=== PATIENT | female | born 1960 | race Caucasian/White ===

== ENCOUNTER → 2016-12-24 | Outpatient (CLI) | payer MEDICAID ==
--- NOTE | 2016-12-24 12:54 | REP ---
MRI BRAIN WITHOUT WITH CONTRAST (IAC PROTOCOL): 12/24/2016. Clinical history: Bilateral tinnitus. Comparison CT brain 11/13/2007. Technique: Whole brain T2 FLAIR and thin section T1 and gradient echo sequences through the IACs along with diffusion-weighted and ADC mapping sequences. After infusion of 16.2 ml as of ProHance, axial T1 whole brain with T1 fat suppressed coronal and axial thin-section images provided. Ventricles are midline, symmetric and without dilatation or displacement. Third and fourth ventricles unremarkable. There are numerous subcortical, deep central and periventricular white matter hyperintense T2 and FLAIR foci. Some of these are confluent with the largest in the left frontal region up to 16 mm in size. Basal ganglia also shows some hyperintense foci. None of these are visible on the T1 images as cystic lesions. Cortical stripe is preserved without evidence of atrophy. The brainstem shows hyperintense focus in the right cerebral peduncle on the T2 images. The wyatt was intact. The cerebellum showed no signal abnormality. Basal cisterns are intact. No intracranial hemorrhage or evidence of infarct. The diffusion weighted images and ADC mapping sequences show no restricted water diffusion or acute ischemia. Thin-section images show the VII/VIII cranial nerve complexes symmetric with normal signal on both sides. On gadolinium images there is no abnormal enhancement of the cranial nerves within the IACs or cerebellopontine angles. No abnormal enhancement in the brain stem, cerebellum or cerebral cortex. None of the white matter lesions show enhancement. The optic chiasm and pituitary were unremarkable. The infundibulum is midline. Corpus callosum showed some white matter hyperintense foci. Impression: 1. There is no MR evidence of mass in the IAC. The VII/VIII cranial nerve complexes were symmetric and normal in signal with no enhancement. CP angles intact. 2. Only a solitary hyperintense focus on T2 FLAIR seen in the right cerebral peduncle. The brainstem unremarkable and the cerebellum intact. There are extensive periventricular deep central and subcortical white matter hyperintense T2 FLAIR foci in both hemispheres. These may reflect small vessel ischemic changes of demyelination or other process. Please correlate clinically. No other findings. Signed by Lloyd Rowe MD 12/24/2016 04:45 P
== END ==
LOC: M RAD 09:53
PROVIDERS: ATTEND Physician Assistant Medical
DX: R90.89 Other abnormal findings on diagnostic imaging of central nervous system (principal)

== ENCOUNTER → 2017-01-06 | Outpatient (REF) | payer MEDICAID ==
[2017-01-06 19:24] LABS: BASO % 0.6 % (0.0-1.0); EOS # 0.6 K/mm3 (0.0-0.50); EOS % 8.1 % (0.0-3.0); LARGE UNSTAINED CELL # 0.1 K/mm3 (0.0-0.4); LARGE UNSTAINED CELL % 1.5 % (0.0-4.0); LYMPH # 2.2 K/mm3 (1.5-4.5); LYMPH % 28.9 % (24.0-44.0); MEAN CORPUSCULAR HEMOGLOBIN 32.7 pg (27.0-33.0); MEAN CORPUSCULAR HGB CONC 33.3 g/dl (32.0-36.5); MEAN CORPUSCULAR VOLUME 98.1 fl (80.0-96.0); MONO # 0.4 K/mm3 (0.0-0.8); MONO % 5.4 % (0.0-5.0); NEUTROPHILS # 4.2 K/mm3 (1.8-7.7); NEUTROPHILS % 55.4 % (36.0-66.0); PLATELET COUNT, AUTOMATED 233 k/mm3 (150-450); RED CELL DISTRIBUTION WIDTH 12.3 % (11.5-14.5); WHITE BLOOD COUNT 7.6 K/mm3 (4.0-10.0)
[2017-01-06 20:29] LABS: ERYTHROCYTE SEDIMENTATION RATE 4 mm/hr (0-30)
== END ==
LOC: M SFHCPLAZ 17:32
PROVIDERS: ATTEND Physician Assistant Medical
DX: J32.9 Chronic sinusitis, unspecified (principal)

== ENCOUNTER → 2017-01-07 | Outpatient (CLI) | payer MEDICAID ==
--- NOTE | 2017-01-07 11:59 | REP ---
MAXILLOFACIAL CT WITHOUT CONTRAST: HISTORY: Chronic sinusitis. The sinuses are clear. The ostiomeatal units are patent. The middle and inferior nasal turbinates are partially paradoxical. There is leti bullosa of the right middle nasal turbinate. There is mild deviation of the nasal septum to the left. A spur is present arising from the left side of the nasal septum. The spur abuts the left inferior nasal turbinate. The cribriform plate, medial horner of the orbits and optic canals are intact. The carotid canals form a segment of the posterolateral horner of the sphenoid sinus. The sphenoid sinus septum inserts into the right internal carotid canal wall. IMPRESSION: There is no acute or chronic sinusitis. Signed by Wilson Lopez MD 01/07/2017 01:49 P
== END ==
LOC: M RAD 10:23
PROVIDERS: ATTEND Physician Assistant Medical
DX: J32.9 Chronic sinusitis, unspecified (principal)

== ENCOUNTER → 2017-01-11 | Outpatient (CLI) | payer MEDICAID ==
[2017-01-11 14:40] LABS: ALBUMIN 4.1 GM/DL (3.2-5.2); ALBUMIN/GLOBULIN RATIO 1.28 (1.00-1.93); ALKALINE PHOSPHATASE 98 U/L (45-117); ALT/SGPT 33 U/L (12-78); ANION GAP 6 MEQ/L (8-16); AST/SGOT 19 U/L (15-37); BILIRUBIN,TOTAL 0.3 MG/DL (0.2-1.0); BLOOD UREA NITROGEN 23 MG/DL (7-18); CALCIUM LEVEL 9.3 MG/DL (8.5-10.1); CARBON DIOXIDE LEVEL 27 MEQ/L (21-32); CHLORIDE LEVEL 112 MEQ/L (98-107); CREATININE FOR GFR 0.87 MG/DL (0.55-1.02); GLOMERULAR FILTRATION RATE > 60.0 (>51); GLUCOSE, FASTING 98 MG/DL (70-105); SODIUM LEVEL 145 MEQ/L (136-145); TOTAL PROTEIN 7.3 GM/DL (6.4-8.2)
[2017-01-11 14:44] LABS: POTASSIUM SERUM 5.2 MEQ/L (3.5-5.1)
[2017-01-11 14:47] LABS: VITAMIN B12 LEVEL 597 PG/ML
[2017-01-11 14:48] LABS: FOLATE > 24.0 NG/ML
[2017-01-17 08:49] LABS: BABESIOSIS LEVEL IGG <1:10 (Neg:<1:10); BABESIOSIS LEVEL IGM <1:10 (Neg:<1:10); BARTONELLA DNA PCR Negative (Negative); Lyme Disease IgG/IgM Antibodie <0.91 ISR (0.00-0.90); Lyme Disease IgM Ab Quantitati <0.80 index (0.00-0.79)
== END ==
LOC: M LAB 12:21
PROVIDERS: ATTEND Psychiatry & Neurology Psychiatry
DX: Z79.899 Other long term (current) drug therapy (principal)

== ENCOUNTER → 2017-02-01 | Outpatient (REF) | payer MEDICAID ==
[2017-02-01 13:10] LABS: FOLATE 18.7 NG/ML; VITAMIN B12 LEVEL 392 PG/ML
[2017-02-01 14:09] LABS: CHOLESTEROL LEVEL 245 MG/DL (<200); TOTAL PROTEIN 6.8 GM/DL (6.4-8.2); TRIGLYCERIDES LEVEL 137 MG/DL (<150)
[2017-02-03 12:00] LABS: ALBUMIN 4.35 GM/DL (3.29-5.55); GAMMA GLOBULIN % 11.8 % (11.1-18.8)
== END ==
LOC: M LABNEURO 11:50
PROVIDERS: ATTEND Psychiatry & Neurology Neurology
DX: E78.00 Pure hypercholesterolemia, unspecified (principal); G60.9 Hereditary and idiopathic neuropathy, unspecified; G45.9 Transient cerebral ischemic attack, unspecified

== ENCOUNTER → 2017-02-23 | Outpatient (REF) | payer MEDICAID ==
[2017-02-23 13:22] LABS: FREE T4 0.81 NG/DL (0.76-1.46)
== END ==
LOC: M SFHCPLAZ 10:47
PROVIDERS: ATTEND Physician Assistant Medical
DX: E66.9 Obesity, unspecified (principal); E78.5 Hyperlipidemia, unspecified; E55.9 Vitamin D deficiency, unspecified

== ENCOUNTER → 2017-04-21 | Outpatient (CLI) | payer MEDICAID ==
--- NOTE | 2017-04-21 15:29 | REPMRS ---
Patient History The patient states she has not had a clinical breast exam in over a year. Patient is postmenopausal. Family history of colorectal cancer in father at age 50 or over. Digital Woman Screen Mammo: April 21, 2017 - Exam #: [id number] Bilateral CC and MLO view(s) were taken. Technologist: Deanne King, Technologist Prior study comparison: July 15, 2015, digital woman screen mammo performed at [facility] to [facility]. October 23, 2013, digital woman screen mammo performed at [facility] to [facility]. FINDINGS: There are scattered fibroglandular densities. There has been no change in the appearance of the mammogram from the prior studies. There is a mild amount of residual fibroglandular tissue which is fairly symmetric. There is no interval development of dominant mass, architectural distortion, or clustered microcalcification suggestive of malignancy. ASSESSMENT: BI-RADS/ACR category 1 mammogram. Negative. Recommendation Routine screening mammogram in 1 year (for women over age 40). This mammogram was interpreted with the aid of an FDA-approved computer-aided dectection system. Electronically Signed By: Roney Flores MD 04/21/17 [id number]
== END ==
LOC: M WHC 14:48
PROVIDERS: ATTEND Physician Assistant Medical
DX: Z12.31 Encounter for screening mammogram for malignant neoplasm of breast (principal)

== ENCOUNTER → 2017-05-11 | Outpatient (CLI) | payer OTHER | LOC: M RAD 13:40 | PROVIDERS: ATTEND Physician Assistant Medical | DX: M25.562 Pain in left knee (principal); M17.12 Unilateral primary osteoarthritis, left knee ==

== ENCOUNTER → 2017-05-11 | Outpatient (REF) | payer OTHER ==
[2017-05-11 16:44] LABS: FREE T4 0.99 NG/DL (0.76-1.46)
== END ==
LOC: M SFHCPLAZ 14:45
PROVIDERS: ATTEND Physician Assistant Medical
DX: E66.9 Obesity, unspecified (principal); E78.00 Pure hypercholesterolemia, unspecified; E55.9 Vitamin D deficiency, unspecified

== ENCOUNTER → 2017-08-23 | Outpatient (REF) | payer OTHER ==
[2017-08-23 19:55] LABS: ANION GAP 7 MEQ/L (8-16); BLOOD UREA NITROGEN 19 MG/DL (7-18); CALCIUM LEVEL 9.7 MG/DL (8.5-10.1); CARBON DIOXIDE LEVEL 27 MEQ/L (21-32); CHLORIDE LEVEL 110 MEQ/L (98-107); CREATININE FOR GFR 0.77 MG/DL (0.55-1.02); GLOMERULAR FILTRATION RATE > 60.0 (>51); GLUCOSE, FASTING 80 MG/DL (70-105); MAGNESIUM LEVEL 2.4 MG/DL (1.8-2.4); POTASSIUM SERUM 4.2 MEQ/L (3.5-5.1); SODIUM LEVEL 144 MEQ/L (136-145)
== END ==
LOC: M SFHCPLAZ 16:08
PROVIDERS: ATTEND Physician Assistant Medical
DX: N18.2 Chronic kidney disease, stage 2 (mild) (principal)

== ENCOUNTER → 2018-03-21 | Outpatient (REF) | payer OTHER ==
[2018-03-21 12:42] LABS: BASO # 0.1 10^3/uL (0.0-0.2); BASO % 0.9 % (0.0-1.0); EOS # 0.3 10^3/uL (0.0-0.50); EOS % 4.7 % (0.0-3.0); HEMATOCRIT 46.4 % (36.0-47.0); HEMOGLOBIN 15.4 g/dl (12.0-15.5); IMMATURE GRANULOCYTE % 0.5 % (0-3.0); LYMPH # 1.5 10^3/uL (1.5-4.5); LYMPH % 23.3 % (24.0-44.0); MEAN CORPUSCULAR HEMOGLOBIN 32.2 pg (27.0-33.0); MEAN CORPUSCULAR HGB CONC 33.2 g/dl (32.0-36.5); MEAN CORPUSCULAR VOLUME 97.1 fl (80.0-96.0); MONO # 0.6 10^3/uL (0.0-0.8); MONO % 8.7 % (0.0-5.0); NEUTROPHILS # 3.9 10^3/uL (1.8-7.7); NEUTROPHILS % 61.9 % (36.0-66.0); PLATELET COUNT, AUTOMATED 280 10^3/uL (150-450); RED BLOOD COUNT 4.78 10^6/uL (4.00-5.40); WHITE BLOOD COUNT 6.3 10^3/uL (4.0-10.0)
[2018-03-21 12:43] LABS: HEMATOCRIT 46.4 % (36.0-47.0)
[2018-03-21 12:53] LABS: TOTAL 25(OH) VITAMIN D 46.3 NG/ML (30.0-100.0)
[2018-03-21 12:54] LABS: FOLATE 21.5 NG/ML (>5.4); PTH INTACT 64.1 PG/ML (18.5-88.0); VITAMIN B12 LEVEL 397 PG/ML (247-911)
[2018-03-21 13:03] LABS: ALBUMIN 4.4 GM/DL (3.2-5.2); ALBUMIN/GLOBULIN RATIO 1.33 (1.00-1.93); ALKALINE PHOSPHATASE 99 U/L (45-117); ALT/SGPT 32 U/L (12-78); ANION GAP 7 MEQ/L (8-16); AST/SGOT 18 U/L (7-37); BILIRUBIN,TOTAL 0.5 MG/DL (0.2-1.0); BLOOD UREA NITROGEN 14 MG/DL (7-18); CALCIUM LEVEL 9.3 MG/DL (8.5-10.1); CARBON DIOXIDE LEVEL 25 MEQ/L (21-32); CHLORIDE LEVEL 110 MEQ/L (98-107); CHOLESTEROL LEVEL 226 MG/DL (<200); CHOLESTEROL RISK RATIO 3.766 (<5); CPK CREATINE PHOSPHOKINASE 120 U/L (26-192); CREATININE FOR GFR 0.87 MG/DL (0.55-1.30); FERRITIN 101 NG/ML (8-252); FREE T4 0.95 NG/DL (0.76-1.46); GLOMERULAR FILTRATION RATE > 60.0 (>51); GLUCOSE, FASTING 107 MG/DL (70-100); HDL CHOLESTEROL 60 MG/DL (>40); IRON (FE) 124 UG/DL (50-170); LDL CHOLESTEROL 127.8 MG/DL (<100); MAGNESIUM LEVEL 2.3 MG/DL (1.8-2.4); NON-HDL-C 166 MG/DL; POTASSIUM SERUM 4.4 MEQ/L (3.5-5.1); SODIUM LEVEL 142 MEQ/L (136-145); TOTAL IRON BINDING CAPACITY 310 UG/DL (250-450); TOTAL PROTEIN 7.7 GM/DL (6.4-8.2); TRIGLYCERIDES LEVEL 191 MG/DL (<150)
[2018-03-21 13:08] LABS: ESTIMATED AVERAGE GLUCOSE 117 MG/DL (60-110); HEMOGLOBIN A1c 5.7 %
[2018-03-21 14:35] LABS: PRETREATED FOLATE FOR RBCFOL 14.1 NG/ML; RBC FOLATE 638.1 NG/ML (280-791)
[2018-03-23 10:52] LABS: ALPHA-1-GLOBULIN % 4.3 % (2.9-4.9); ALPHA-2-GLOBULINS % 10.3 % (7.1-11.8); BETA-1-GLOBULINS % 5.6 % (4.7-7.2)
[2018-03-23 10:53] LABS: ALBUMIN 4.85 GM/DL (3.29-5.55); ALPHA-1-GLOBULINS 0.33 GM/DL (0.17-0.41); ALPHA-2-GLOBULINS 0.79 GM/DL (0.42-0.99); BETA-1-GLOBULINS 0.43 GM/DL (0.28-0.60); BETA-2-GLOBULINS 0.35 GM/DL (0.19-0.55); BETA-2-GLOBULINS % 4.5 % (3.2-6.5); GAMMA GLOBULIN % 12.3 % (11.1-18.8); GAMMA GLOBULINS 0.95 GM/DL (0.65-1.58)
== END ==
LOC: M SFHCPLAZ 09:34
DX: E78.5 Hyperlipidemia, unspecified (principal); N18.2 Chronic kidney disease, stage 2 (mild); I10 Essential (primary) hypertension; E55.9 Vitamin D deficiency, unspecified; E66.9 Obesity, unspecified
CPT/HCPCS: 82550

== ENCOUNTER → 2018-05-02 | Outpatient (CLI) | payer OTHER | LOC: M PAIN 08:45 | DX: G89.29 Other chronic pain (principal); M54.5 Low back pain; M54.2 Cervicalgia; M25.562 Pain in left knee; I10 Essential (primary) hypertension; E66.9 Obesity, unspecified; R73.01 Impaired fasting glucose; F31.9 Bipolar disorder, unspecified; K21.9 Gastro-esophageal reflux disease without esophagitis; E55.9 Vitamin D deficiency, unspecified; M17.0 Bilateral primary osteoarthritis of knee; K58.2 Mixed irritable bowel syndrome; I65.21 Occlusion and stenosis of right carotid artery; L20.9 Atopic dermatitis, unspecified; Z79.891 Long term (current) use of opiate analgesic; Z79.899 Other long term (current) drug therapy; Z88.8 Allergy status to other drugs, medicaments and biological substances; Z91.048 Other nonmedicinal substance allergy status | CPT/HCPCS: G0463 ==

== ENCOUNTER → 2018-05-31 | Outpatient (REF) | payer OTHER ==
[2018-05-31 18:39] LABS: BASO % 0.6 % (0.0-1.0); EOS # 0.3 10^3/uL (0.0-0.50); EOS % 3.9 % (0.0-3.0); HEMATOCRIT 44.5 % (36.0-47.0); HEMOGLOBIN 14.7 g/dl (12.0-15.5); IMMATURE GRANULOCYTE % 0.3 % (0-3.0); LYMPH % 29.3 % (24.0-44.0); MEAN CORPUSCULAR VOLUME 96.9 fl (80.0-96.0); MONO # 0.5 10^3/uL (0.0-0.8); MONO % 7.8 % (0.0-5.0); NEUTROPHILS % 58.1 % (36.0-66.0); PLATELET COUNT, AUTOMATED 261 10^3/uL (150-450); RED BLOOD COUNT 4.59 10^6/uL (4.00-5.40); RED CELL DISTRIBUTION WIDTH 12.1 % (11.5-14.5); WHITE BLOOD COUNT 6.9 10^3/uL (4.0-10.0)
[2018-05-31 18:40] LABS: C REACTIVE PROTEIN QUANTITATIV < 0.30 MG/DL (0.00-0.30)
[2018-05-31 18:40] LABS: RHEUMATOID FACTOR QUANT < 10.0 IU/ML (<15.0)
[2018-05-31 19:28] LABS: ERYTHROCYTE SEDIMENTATION RATE 2 mm/hr (0-30)
[2018-06-03 00:14] LABS: ANTINUCLEAR ANTIBODIES DIRECT Negative (Negative); Lyme Disease IgG/IgM Antibodie <0.91 ISR (0.00-0.90); Lyme Disease IgM Ab Quantitati <0.80 index (0.00-0.79)
== END ==
LOC: M LABDRAW1 17:27
DX: M17.12 Unilateral primary osteoarthritis, left knee (principal)

== ENCOUNTER → 2018-06-20 | Outpatient (CLI) | payer OTHER | LOC: M PAIN 09:45 | DX: M53.3 Sacrococcygeal disorders, not elsewhere classified (principal); M54.5 Low back pain; G89.29 Other chronic pain; I10 Essential (primary) hypertension; R73.01 Impaired fasting glucose; F31.9 Bipolar disorder, unspecified; K21.9 Gastro-esophageal reflux disease without esophagitis; M17.11 Unilateral primary osteoarthritis, right knee; Z79.891 Long term (current) use of opiate analgesic; Z79.899 Other long term (current) drug therapy; Z88.8 Allergy status to other drugs, medicaments and biological substances; Z91.09 Other allergy status, other than to drugs and biological substances; Z87.891 Personal history of nicotine dependence | CPT/HCPCS: G0463 ==

== ENCOUNTER → 2018-07-05 | Outpatient (CLI) | payer OTHER ==
[~2018-07-05] MED LIST: BUPIVACAINE HCL 0.25% 30 ML VIAL As Ordered; ISOVUE-M 300 61% 15ML VIAL (Q9967) As Ordered; LIDOCAINE 1% SDV INJ 30 ML VIAL As Ordered; TRIAMCINOLONE ACETONIDE SUSP 40 MG/ML VIAL (J3301) As Ordered; diazePAM 5 MG TAB As Ordered
== END ==
LOC: M PAIN 11:30
DX: G89.29 Other chronic pain (principal); M46.1 Sacroiliitis, not elsewhere classified; M53.88 Other specified dorsopathies, sacral and sacrococcygeal region; I10 Essential (primary) hypertension; F31.9 Bipolar disorder, unspecified; K21.9 Gastro-esophageal reflux disease without esophagitis; M17.0 Bilateral primary osteoarthritis of knee; Z79.899 Other long term (current) drug therapy; Z88.8 Allergy status to other drugs, medicaments and biological substances; Z91.09 Other allergy status, other than to drugs and biological substances; Z87.891 Personal history of nicotine dependence
CPT/HCPCS: J3301

== ENCOUNTER → 2018-08-02 | Outpatient (CLI) | payer OTHER | LOC: M PAIN 11:45 | DX: M53.3 Sacrococcygeal disorders, not elsewhere classified (principal); M54.5 Low back pain; I10 Essential (primary) hypertension; R73.01 Impaired fasting glucose; F31.9 Bipolar disorder, unspecified; K21.9 Gastro-esophageal reflux disease without esophagitis; Z79.899 Other long term (current) drug therapy; Z88.8 Allergy status to other drugs, medicaments and biological substances; Z91.09 Other allergy status, other than to drugs and biological substances; Z87.891 Personal history of nicotine dependence | CPT/HCPCS: G0463 ==

== ENCOUNTER → 2018-10-02 | Outpatient (CLI) | payer OTHER | LOC: M PAIN 10:15 | DX: M53.3 Sacrococcygeal disorders, not elsewhere classified (principal); M54.5 Low back pain; I10 Essential (primary) hypertension; E66.9 Obesity, unspecified; M51.36 Other intervertebral disc degeneration, lumbar region; L20.9 Atopic dermatitis, unspecified; R73.01 Impaired fasting glucose; F31.9 Bipolar disorder, unspecified; K21.9 Gastro-esophageal reflux disease without esophagitis; E55.9 Vitamin D deficiency, unspecified; M17.0 Bilateral primary osteoarthritis of knee; K58.2 Mixed irritable bowel syndrome; I65.21 Occlusion and stenosis of right carotid artery; Z88.8 Allergy status to other drugs, medicaments and biological substances; Z91.048 Other nonmedicinal substance allergy status; Z68.31 Body mass index [BMI] 31.0-31.9, adult; Z79.891 Long term (current) use of opiate analgesic; Z87.891 Personal history of nicotine dependence; Z79.899 Other long term (current) drug therapy | CPT/HCPCS: G0463 ==

== ENCOUNTER → 2018-10-10 | Outpatient (CLI) | payer OTHER | LOC: M RAD 11:31 | DX: G45.9 Transient cerebral ischemic attack, unspecified (principal) | CPT/HCPCS: 70450 ==

== ENCOUNTER → 2018-10-25 | Outpatient (CLI) | payer OTHER ==
[~2018-10-25] MED LIST changes: -BUPIVACAINE HCL 0.25% 30 ML VIAL As Ordered; -ISOVUE-M 300 61% 15ML VIAL (Q9967) As Ordered; -LIDOCAINE 1% SDV INJ 30 ML VIAL As Ordered; +PROHANCE 279.3MG/ML 15ML VIAL (A9576) As Ordered; +PROHANCE 279.3MG/ML 5ML VIAL (A9576) As Ordered; -TRIAMCINOLONE ACETONIDE SUSP 40 MG/ML VIAL (J3301) As Ordered; -diazePAM 5 MG TAB As Ordered
== END ==
LOC: M RAD 14:56
DX: G45.9 Transient cerebral ischemic attack, unspecified (principal)
CPT/HCPCS: A9576

== ENCOUNTER → 2018-11-01 | Outpatient (CLI) | payer OTHER ==
[~2018-11-01] MED LIST changes: +AMLO5TAB4; +AUGM875T28 PO; +BUPIVACAINE HCL 0.25% 30 ML VIAL As Ordered ONE; +CARV12.5; +DIVA1TAB48; +FLON1SPR; +ISOVUE-M 300 61% 15ML VIAL (Q9967) As Ordered ONE; +LIDOCAINE 1% SDV INJ 30 ML VIAL As Ordered ONE; +LORA-243; +MAPA500T17; +NAPR1TAB41; +PERM5CRE9; -PROHANCE 279.3MG/ML 15ML VIAL (A9576) As Ordered; -PROHANCE 279.3MG/ML 5ML VIAL (A9576) As Ordered; +SIME1CAP; +SIMV20TA2; +TOPI100T9; +TRAM50TA2; +TRIAMCINOLONE ACETONIDE SUSP 40 MG/ML VIAL (J3301) As Ordered ONE; +VIST50CA PO; +VITA50005; +diazePAM 5 MG TAB As Ordered ONE; +oxyCODONE 5MG TAB As Ordered ONE
--- NOTE | 2018-11-01 15:40 | REP ---
SI joint series: Bilateral study. Two views. History: Bilateral SI joint injection for pain. 30 seconds of fluoroscopy time is reported. Findings: A sequence of two last image hold fluoroscopically obtained spot radiographs of the SI joints document needle position and contrast injection associated with SI joint injection procedure. Electronically Signed by David Hills MD 11/01/2018 05:02 P
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
== END ==
LOC: M PAIN 10:15
PROVIDERS: ATTEND Anesthesiology
DX: M46.1 Sacroiliitis, not elsewhere classified (principal); I10 Essential (primary) hypertension; L20.9 Atopic dermatitis, unspecified; M51.36 Other intervertebral disc degeneration, lumbar region; E66.9 Obesity, unspecified; R73.01 Impaired fasting glucose; Z68.31 Body mass index [BMI] 31.0-31.9, adult; F31.9 Bipolar disorder, unspecified; K21.9 Gastro-esophageal reflux disease without esophagitis; E55.9 Vitamin D deficiency, unspecified; K58.2 Mixed irritable bowel syndrome; Z87.891 Personal history of nicotine dependence; Z79.82 Long term (current) use of aspirin; Z79.899 Other long term (current) drug therapy; Z88.8 Allergy status to other drugs, medicaments and biological substances; Z91.048 Other nonmedicinal substance allergy status
CPT/HCPCS: 27096; J3301; Q9967

== ENCOUNTER → 2018-11-08 | Outpatient (REF) | payer OTHER ==
[~2018-11-08] MED LIST changes: -BUPIVACAINE HCL 0.25% 30 ML VIAL As Ordered ONE; -ISOVUE-M 300 61% 15ML VIAL (Q9967) As Ordered ONE; -LIDOCAINE 1% SDV INJ 30 ML VIAL As Ordered ONE; -TRIAMCINOLONE ACETONIDE SUSP 40 MG/ML VIAL (J3301) As Ordered ONE; -diazePAM 5 MG TAB As Ordered ONE; -oxyCODONE 5MG TAB As Ordered ONE
[2018-11-08 12:13] LABS: BASO # 0.1 10^3/uL (0.0-0.2); BASO % 0.5 % (0.0-1.0); EOS # 0.3 10^3/uL (0.0-0.50); EOS % 2.6 % (0.0-3.0); HEMATOCRIT 44.8 % (36.0-47.0); HEMOGLOBIN 14.7 g/dl (12.0-15.5); LYMPH % 19.5 % (24.0-44.0); MEAN CORPUSCULAR HEMOGLOBIN 32.5 pg (27.0-33.0); MEAN CORPUSCULAR HGB CONC 32.8 g/dl (32.0-36.5); MEAN CORPUSCULAR VOLUME 98.9 fl (80.0-96.0); MONO # 0.8 10^3/uL (0.0-0.8); MONO % 7.9 % (0.0-5.0); NEUTROPHILS # 6.9 10^3/uL (1.8-7.7); NEUTROPHILS % 68.8 % (36.0-66.0); PLATELET COUNT, AUTOMATED 257 10^3/uL (150-450); RED BLOOD COUNT 4.53 10^6/uL (4.00-5.40)
[2018-11-08 13:18] LABS: ALBUMIN 3.8 GM/DL (3.2-5.2); ALT/SGPT 33 U/L (12-78); BILIRUBIN,TOTAL 0.4 MG/DL (0.2-1.0); BLOOD UREA NITROGEN 19 MG/DL (7-18); CALCIUM LEVEL 9.1 MG/DL (8.5-10.1); CARBON DIOXIDE LEVEL 27 MEQ/L (21-32); CHLORIDE LEVEL 108 MEQ/L (98-107); CREATININE FOR GFR 0.97 MG/DL (0.55-1.30); GLOMERULAR FILTRATION RATE > 60.0 (>51); GLUCOSE, FASTING 102 MG/DL (70-100); POTASSIUM SERUM 4.5 MEQ/L (3.5-5.1); SODIUM LEVEL 141 MEQ/L (136-145); TOTAL PROTEIN 6.5 GM/DL (6.4-8.2)
[2018-11-08 13:57] LABS: HEMOGLOBIN A1c 5.7 %
== END ==
LOC: M SFHCPLAZ 10:03
PROVIDERS: ATTEND Physician Assistant Medical
DX: I10 Essential (primary) hypertension (principal); E78.5 Hyperlipidemia, unspecified; E66.9 Obesity, unspecified

== ENCOUNTER → 2018-11-17 | Outpatient (CLI) | payer OTHER ==
[~2018-11-17] MED LIST changes: -AMLO5TAB4; +AMLO5TAB6; -MAPA500T17; +MAPA500T2
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
== END ==
LOC: M PAIN 10:15
PROVIDERS: ATTEND Nurse Practitioner Family
DX: M53.3 Sacrococcygeal disorders, not elsewhere classified (principal); M54.5 Low back pain; I10 Essential (primary) hypertension; K21.9 Gastro-esophageal reflux disease without esophagitis; R73.01 Impaired fasting glucose; F31.0 Bipolar disorder, current episode hypomanic; L20.9 Atopic dermatitis, unspecified; M17.0 Bilateral primary osteoarthritis of knee; Z79.82 Long term (current) use of aspirin; Z79.899 Other long term (current) drug therapy; Z88.8 Allergy status to other drugs, medicaments and biological substances; Z91.09 Other allergy status, other than to drugs and biological substances; Z86.19 Personal history of other infectious and parasitic diseases; Z87.891 Personal history of nicotine dependence

== ENCOUNTER → 2019-01-26 | Outpatient (CLI) | payer OTHER ==
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
== END ==
LOC: M PAIN 13:45
PROVIDERS: ATTEND Nurse Practitioner Family
DX: M53.3 Sacrococcygeal disorders, not elsewhere classified (principal); M54.5 Low back pain; G89.29 Other chronic pain; I10 Essential (primary) hypertension; R73.01 Impaired fasting glucose; F31.9 Bipolar disorder, unspecified; K21.9 Gastro-esophageal reflux disease without esophagitis; M17.0 Bilateral primary osteoarthritis of knee; Z79.82 Long term (current) use of aspirin; Z79.899 Other long term (current) drug therapy; Z88.8 Allergy status to other drugs, medicaments and biological substances; Z91.09 Other allergy status, other than to drugs and biological substances; Z87.891 Personal history of nicotine dependence

== ENCOUNTER → 2019-02-27 | Outpatient (CLI) | payer OTHER ==
[~2019-02-27] MED LIST changes: +BUPIVACAINE HCL 0.25% 30 ML VIAL As Ordered ONE; +ISOVUE-M 300 61% 15ML VIAL (Q9967) As Ordered ONE; +LIDOCAINE 1% SDV INJ 30 ML VIAL As Ordered ONE; +TRIAMCINOLONE ACETONIDE SUSP 40 MG/ML VIAL (J3301) As Ordered ONE; +diazePAM 5 MG TAB As Ordered ONE
--- NOTE | 2019-02-27 16:34 | REP ---
Bilateral SI joint series: Limited study three views: History: Injection procedure for pain. 14 seconds of fluoroscopy time is reported. Findings: A sequence of three last image hold fluoroscopically obtained spot radiographs of the SI joints bilaterally document needle position associated with injection procedure. Electronically Signed by David Hills MD 02/27/2019 08:35 P
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
== END ==
LOC: M PAIN 11:00
PROVIDERS: ATTEND Anesthesiology
DX: G89.29 Other chronic pain (principal); M46.1 Sacroiliitis, not elsewhere classified; M53.88 Other specified dorsopathies, sacral and sacrococcygeal region; I10 Essential (primary) hypertension; R73.01 Impaired fasting glucose; F31.9 Bipolar disorder, unspecified; Z79.82 Long term (current) use of aspirin; Z79.899 Other long term (current) drug therapy; Z88.8 Allergy status to other drugs, medicaments and biological substances; Z91.09 Other allergy status, other than to drugs and biological substances; Z86.19 Personal history of other infectious and parasitic diseases; Z87.891 Personal history of nicotine dependence
CPT/HCPCS: 27096; J3301; Q9967

== ENCOUNTER → 2019-03-16 | Outpatient (CLI) | payer OTHER ==
[~2019-03-16] MED LIST changes: -BUPIVACAINE HCL 0.25% 30 ML VIAL As Ordered ONE; -ISOVUE-M 300 61% 15ML VIAL (Q9967) As Ordered ONE; -LIDOCAINE 1% SDV INJ 30 ML VIAL As Ordered ONE; -TRIAMCINOLONE ACETONIDE SUSP 40 MG/ML VIAL (J3301) As Ordered ONE; -diazePAM 5 MG TAB As Ordered ONE
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
== END ==
LOC: M PAIN 10:15
PROVIDERS: ATTEND Nurse Practitioner Family
DX: M79.10 Myalgia, unspecified site (principal); I10 Essential (primary) hypertension; R73.01 Impaired fasting glucose; Z86.59 Personal history of other mental and behavioral disorders; K21.9 Gastro-esophageal reflux disease without esophagitis; E55.9 Vitamin D deficiency, unspecified; Z87.891 Personal history of nicotine dependence; Z88.8 Allergy status to other drugs, medicaments and biological substances; Z91.09 Other allergy status, other than to drugs and biological substances; Z79.82 Long term (current) use of aspirin; Z79.899 Other long term (current) drug therapy

== ENCOUNTER → 2019-04-03 | Outpatient (REF) | payer OTHER | LOC: M SFHCPLAZ 14:50 | PROVIDERS: ATTEND Physician Assistant Medical | DX: R05 Cough (principal) ==

== ENCOUNTER → 2019-04-10 | Outpatient (CLI) | payer OTHER ==
[~2019-04-10] MED LIST changes: +BUPIVACAINE HCL 0.25% 10 ML VIAL As Ordered ONE; +BUPIVACAINE HCL 0.25% 30 ML VIAL As Ordered ONE; +IBUP-1022 PO; +TRIAMCINOLONE ACETONIDE SUSP 40 MG/ML VIAL (J3301) As Ordered ONE; +diazePAM 5 MG TAB As Ordered ONE
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
== END ==
LOC: M PAIN 11:00
PROVIDERS: ATTEND Anesthesiology
DX: M79.18 Myalgia, other site (principal); M54.5 Low back pain; I10 Essential (primary) hypertension; R73.01 Impaired fasting glucose; K21.9 Gastro-esophageal reflux disease without esophagitis; M17.0 Bilateral primary osteoarthritis of knee; Z79.82 Long term (current) use of aspirin; Z79.899 Other long term (current) drug therapy; Z88.8 Allergy status to other drugs, medicaments and biological substances; Z91.09 Other allergy status, other than to drugs and biological substances; Z87.891 Personal history of nicotine dependence; Z86.59 Personal history of other mental and behavioral disorders
CPT/HCPCS: 20552; J3301

== ENCOUNTER 2019-04-18 14:37 | Emergency (ER) | payer OTHER ==
[~2019-04-18] VITALS: Ht 170.2 cm; Wt 90.0 kg
[~2019-04-18 14:37] MED LIST changes: -BUPIVACAINE HCL 0.25% 10 ML VIAL As Ordered ONE; -BUPIVACAINE HCL 0.25% 30 ML VIAL As Ordered ONE; -IBUP-1022 PO; -TRIAMCINOLONE ACETONIDE SUSP 40 MG/ML VIAL (J3301) As Ordered ONE; -diazePAM 5 MG TAB As Ordered ONE
[2019-04-18 15:47] LABS: BASO # 0.1 10^3/uL (0.0-0.2); BASO % 0.6 % (0.0-1.0); EOS # 0.3 10^3/uL (0.0-0.50); EOS % 2.9 % (0.0-3.0); HEMATOCRIT 42.9 % (36.0-47.0); HEMOGLOBIN 14.3 g/dl (12.0-15.5); LYMPH % 22.6 % (24.0-44.0); MEAN CORPUSCULAR HEMOGLOBIN 32.1 pg (27.0-33.0); MEAN CORPUSCULAR HGB CONC 33.3 g/dl (32.0-36.5); MEAN CORPUSCULAR VOLUME 96.4 fl (80.0-96.0); MONO # 0.8 10^3/uL (0.0-0.8); MONO % 8.5 % (0.0-5.0); NEUTROPHILS # 5.9 10^3/uL (1.8-7.7); NEUTROPHILS % 64.7 % (36.0-66.0); PLATELET COUNT, AUTOMATED 238 10^3/uL (150-450); RED BLOOD COUNT 4.45 10^6/uL (4.00-5.40)
[2019-04-18 15:51] LABS: BLOOD UREA NITROGEN 21 MG/DL (7-18); CALCIUM LEVEL 8.4 MG/DL (8.5-10.1); CARBON DIOXIDE LEVEL 24 MEQ/L (21-32); CHLORIDE LEVEL 113 MEQ/L (98-107); CPK CREATINE PHOSPHOKINASE 111 U/L (26-192); CREATININE FOR GFR 0.89 MG/DL (0.55-1.30); GLOMERULAR FILTRATION RATE > 60.0 (>51); GLUCOSE, FASTING 102 MG/DL (70-100); MB/CK RELATIVE INDEX 2.07 (< OR =4); SODIUM LEVEL 145 MEQ/L (136-145); TROPONIN I < 0.02 NG/ML (< 0.10)
--- NOTE | 2019-04-18 15:55 | REP ---
Clinical: Acute chest pain. Comparison: 12/26/2014 Findings: Mediastinum and cardiac silhouette are normal. Scattered chronic-appearing interstitial changes are appreciated. Subtle left basilar atelectasis cannot be excluded and should be correlated with physical examination and auscultation. Impression: Cannot exclude trace left basilar atelectasis. Electronically Signed by Dada Whitten MD 04/18/2019 03:46 P
--- NOTE | 2019-04-18 16:55 | REP ---
CT Head without contrast HISTORY: Confusion COMPARISON: CT 10/10/2018 and MR 10/25/2018 Areas of decreased attenuation are present in the periventricular and subcortical white matter. These are unchanged compared to the previous study. There is no intraparenchymal hemorrhage, acute infarct, mass or midline shift. The ventricular system is normal in appearance. There is no extra cerebral collection. There is no fracture. The visualized sinuses are clear. IMPRESSION: There areas of decreased attenuation in the periventricular and subcortical white matter unchanged compared to the previous study. This may represent demyelinating disease. Electronically Signed by Wilson Lopez MD 04/18/2019 04:46 P
--- NOTE | 2019-04-18 16:59 | REP ---
CT cervical spine without contrast HISTORY: Confusion COMPARISON: 11/13/2007 There is no acute fracture or subluxation. A disc bulge is present at the C3-4 level. Disc bulges with associated osteophyte formation are present at the C4-5 through C6-7 levels. There is minimal narrowing of the spinal canal. Uncinate process and/or facet hypertrophy are present at the C3-4 through C7-T1 levels. These findings produce minimal to moderate narrowing of the neural foramina. The C3-4 through C7-T1 intervertebral discs are decreased in height consistent with disc degeneration. IMPRESSION: 1. There is no acute fracture or subluxation. 2. There is cervical spondylosis at the C3-4 through C7-T1 levels . Findings at the C3-4, C6-7 and C7-T1 levels are new. Electronically Signed by Wilson Lopez MD 04/18/2019 04:51 P
[2019-04-18] MEDS ORDERED: IBUP-1022 PO (17:34)
[2019-04-18 17:54] VITALS: BP 128/77
--- NOTE | 2019-04-18 18:25 | ED PDOC ---
Post-Departure Follow-Up sheridan brink faxed formal report of ct c spine for fu Vicente Merrill MD April 18, 2019 18:25
--- NOTE | 2019-04-18 19:59 | ECGEPIP ---
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
== END 2019-04-18 18:03 | disposition home or self-care (01) ==
LOC: M ED 14:37
DX: M47.812 Spondylosis without myelopathy or radiculopathy, cervical region (principal); R07.89 Other chest pain; I10 Essential (primary) hypertension; E78.5 Hyperlipidemia, unspecified; Z79.899 Other long term (current) drug therapy; Z88.8 Allergy status to other drugs, medicaments and biological substances

== ENCOUNTER → 2019-05-18 | Outpatient (CLI) | payer OTHER ==
[~2019-05-18] MED LIST changes: +IBUP-1022 PO
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
== END ==
LOC: M PAIN 10:15
PROVIDERS: ATTEND Nurse Practitioner Family
DX: M79.18 Myalgia, other site (principal); I10 Essential (primary) hypertension; M51.36 Other intervertebral disc degeneration, lumbar region; E66.9 Obesity, unspecified; R73.01 Impaired fasting glucose; L20.9 Atopic dermatitis, unspecified; F31.9 Bipolar disorder, unspecified; K21.9 Gastro-esophageal reflux disease without esophagitis; E55.9 Vitamin D deficiency, unspecified; M17.0 Bilateral primary osteoarthritis of knee; K58.2 Mixed irritable bowel syndrome; I65.21 Occlusion and stenosis of right carotid artery; M51.26 Other intervertebral disc displacement, lumbar region; Z87.891 Personal history of nicotine dependence; Z79.82 Long term (current) use of aspirin; Z79.891 Long term (current) use of opiate analgesic; Z79.899 Other long term (current) drug therapy; Z88.8 Allergy status to other drugs, medicaments and biological substances; Z91.048 Other nonmedicinal substance allergy status

== ENCOUNTER → 2019-08-02 | Outpatient (CLI) | payer OTHER ==
[~2019-08-02] MED LIST changes: +BUPIVACAINE HCL 0.25% 30 ML VIAL As Ordered ONE; +ISOVUE-M 300 61% 15ML VIAL (Q9967) As Ordered ONE; +LIDOCAINE 1% SDV INJ 30 ML VIAL As Ordered ONE; +ONDANSETRON 4MG/2ML VIAL (J2405) As Ordered ONE; -SIMV20TA2; +SIMV20TA22
--- NOTE | 2019-08-02 16:22 | REP ---
Partial lumbar spine series: Four views . History: Injection procedure for pain. 32 seconds of fluoroscopy time is reported. Findings: A sequence of four fluoroscopically obtained last image hold procedural spot radiographs of the lumbar spine document needle position and contrast injection associated with injection procedure. Electronically Signed by David Hills MD 08/02/2019 04:14 P
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
== END ==
LOC: M PAIN 13:45
PROVIDERS: ATTEND Anesthesiology
DX: M47.816 Spondylosis without myelopathy or radiculopathy, lumbar region (principal); M47.817 Spondylosis without myelopathy or radiculopathy, lumbosacral region; I10 Essential (primary) hypertension; M51.26 Other intervertebral disc displacement, lumbar region; E66.9 Obesity, unspecified; R73.01 Impaired fasting glucose; F31.9 Bipolar disorder, unspecified; L20.9 Atopic dermatitis, unspecified; K21.9 Gastro-esophageal reflux disease without esophagitis; E55.9 Vitamin D deficiency, unspecified; M17.0 Bilateral primary osteoarthritis of knee; K58.2 Mixed irritable bowel syndrome; I65.21 Occlusion and stenosis of right carotid artery; Z68.30 Body mass index [BMI] 30.0-30.9, adult; Z87.891 Personal history of nicotine dependence; Z90.49 Acquired absence of other specified parts of digestive tract; Z88.8 Allergy status to other drugs, medicaments and biological substances; Z91.048 Other nonmedicinal substance allergy status; Z79.82 Long term (current) use of aspirin; Z79.891 Long term (current) use of opiate analgesic; Z79.899 Other long term (current) drug therapy; Z79.52 Long term (current) use of systemic steroids
CPT/HCPCS: 64493; 64494; J2405; Q9967

== ENCOUNTER → 2019-08-16 | Outpatient (REF) | payer OTHER ==
[~2019-08-16] MED LIST changes: -BUPIVACAINE HCL 0.25% 30 ML VIAL As Ordered ONE; -ISOVUE-M 300 61% 15ML VIAL (Q9967) As Ordered ONE; -LIDOCAINE 1% SDV INJ 30 ML VIAL As Ordered ONE; -ONDANSETRON 4MG/2ML VIAL (J2405) As Ordered ONE; +SIMV20TA2; -SIMV20TA22
== END ==
LOC: M LAB REF 12:44
PROVIDERS: ATTEND Podiatrist
DX: L03.032 Cellulitis of left toe (principal); M79.672 Pain in left foot

== ENCOUNTER → 2019-08-21 | Outpatient (CLI) | payer OTHER | LOC: M PAIN 11:15 | PROVIDERS: ATTEND Nurse Practitioner Family | DX: M43.07 Spondylolysis, lumbosacral region (principal); Z79.82 Long term (current) use of aspirin; Z79.891 Long term (current) use of opiate analgesic; Z79.899 Other long term (current) drug therapy; Z88.8 Allergy status to other drugs, medicaments and biological substances; Z91.048 Other nonmedicinal substance allergy status ==

== ENCOUNTER → 2019-10-10 | Outpatient (CLI) | payer OTHER ==
[~2019-10-10] MED LIST changes: +BUPIVACAINE HCL 0.25% 30 ML VIAL As Ordered ONE; +ISOVUE-M 300 61% 15ML VIAL (Q9967) As Ordered ONE; +LIDOCAINE 1% SDV INJ 30 ML VIAL As Ordered ONE; -SIMV20TA2; +SIMV20TA22
--- NOTE | 2019-10-10 15:32 | REP ---
Partial lumbar spine series: Two views . History: Injection procedure for pain. 24 seconds of fluoroscopy time is reported. Findings: A sequence of two fluoroscopically obtained last image hold procedural spot radiographs of the lumbar spine document needle position and contrast injection associated with injection procedure. Electronically Signed by David Hills MD 10/10/2019 03:22 P
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
== END ==
LOC: M PAIN 11:15
PROVIDERS: ATTEND Anesthesiology
DX: M47.816 Spondylosis without myelopathy or radiculopathy, lumbar region (principal); M47.817 Spondylosis without myelopathy or radiculopathy, lumbosacral region; I10 Essential (primary) hypertension; R73.01 Impaired fasting glucose; Z86.59 Personal history of other mental and behavioral disorders; K21.9 Gastro-esophageal reflux disease without esophagitis; E55.9 Vitamin D deficiency, unspecified; Z86.19 Personal history of other infectious and parasitic diseases; Z87.891 Personal history of nicotine dependence; Z88.8 Allergy status to other drugs, medicaments and biological substances; Z91.09 Other allergy status, other than to drugs and biological substances; Z79.82 Long term (current) use of aspirin; Z79.899 Other long term (current) drug therapy
CPT/HCPCS: 64493; 64494; Q9967

== ENCOUNTER → 2019-10-24 | Outpatient (CLI) | payer OTHER ==
[~2019-10-24] MED LIST changes: -BUPIVACAINE HCL 0.25% 30 ML VIAL As Ordered ONE; -ISOVUE-M 300 61% 15ML VIAL (Q9967) As Ordered ONE; -LIDOCAINE 1% SDV INJ 30 ML VIAL As Ordered ONE
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
== END ==
LOC: M PAIN 10:00
PROVIDERS: ATTEND Nurse Practitioner Family
DX: M47.816 Spondylosis without myelopathy or radiculopathy, lumbar region (principal); M47.817 Spondylosis without myelopathy or radiculopathy, lumbosacral region; I10 Essential (primary) hypertension; R73.01 Impaired fasting glucose; Z86.59 Personal history of other mental and behavioral disorders; K21.9 Gastro-esophageal reflux disease without esophagitis; E55.9 Vitamin D deficiency, unspecified; Z87.891 Personal history of nicotine dependence; Z88.8 Allergy status to other drugs, medicaments and biological substances; Z91.09 Other allergy status, other than to drugs and biological substances; Z79.82 Long term (current) use of aspirin; Z79.899 Other long term (current) drug therapy

== ENCOUNTER → 2019-12-11 | Outpatient (CLI) | payer OTHER ==
[~2019-12-11] MED LIST changes: +BUPIVACAINE HCL 0.25% 30 ML VIAL As Ordered ONE; +LIDOCAINE 1% SDV INJ 30 ML VIAL As Ordered ONE; +TRIAMCINOLONE ACETONIDE SUSP 40 MG/ML VIAL (J3301) As Ordered ONE
--- NOTE | 2019-12-11 16:24 | REP ---
Partial lumbar spine series: Three views . History: Injection procedure for pain. 1 minute 48 seconds of fluoroscopy time is reported. Findings: A sequence of three fluoroscopically obtained last image hold procedural spot radiographs of the lumbar spine document needle position and contrast injection associated with injection procedure. Electronically Signed by David Hills MD 12/11/2019 04:16 P
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
== END ==
LOC: M PAIN 13:00
PROVIDERS: ATTEND Anesthesiology
DX: M47.816 Spondylosis without myelopathy or radiculopathy, lumbar region (principal); M47.817 Spondylosis without myelopathy or radiculopathy, lumbosacral region; I10 Essential (primary) hypertension; R73.01 Impaired fasting glucose; Z86.59 Personal history of other mental and behavioral disorders; K21.9 Gastro-esophageal reflux disease without esophagitis; E55.9 Vitamin D deficiency, unspecified; Z87.891 Personal history of nicotine dependence; Z88.8 Allergy status to other drugs, medicaments and biological substances; Z91.09 Other allergy status, other than to drugs and biological substances; Z79.82 Long term (current) use of aspirin; Z79.899 Other long term (current) drug therapy
CPT/HCPCS: 64635; 64636; J3301

== ENCOUNTER 2020-02-22 09:29 | Inpatient (IN) | payer MEDICAID, OTHER ==
[~2020-02-22] VITALS: Ht 170.2 cm; Wt 86.4 kg
[~2020-02-22 09:29] MED LIST changes: -AMLO5TAB6; +AMLO5TAB6 PO; -BUPIVACAINE HCL 0.25% 30 ML VIAL As Ordered ONE; -CARV12.5; +CARV12.5 PO; -LIDOCAINE 1% SDV INJ 30 ML VIAL As Ordered ONE; -MAPA500T2; +MAPA500T2 PO; -NAPR1TAB41; +NAPR1TAB41 PO; -SIME1CAP; +SIME1CAP PO; -TOPI100T9; +TOPI100T9 PO; -TRAM50TA2; +TRAM50TA2 PO; -TRIAMCINOLONE ACETONIDE SUSP 40 MG/ML VIAL (J3301) As Ordered ONE
[2020-02-22] MEDS ORDERED: TIZA4TAB4 PO (10:41)
[2020-02-22 10:42] LABS: HEMATOCRIT 43.3 % (36.0-47.0); HEMOGLOBIN 14.2 g/dl (12.0-15.5); MEAN CORPUSCULAR HEMOGLOBIN 33.1 pg (27.0-33.0); MEAN CORPUSCULAR HGB CONC 32.8 g/dl (32.0-36.5); MEAN CORPUSCULAR VOLUME 100.9 fl (80.0-96.0); PLATELET COUNT, AUTOMATED 243 10^3/uL (150-450); RED BLOOD COUNT 4.29 10^6/uL (4.00-5.40); WHITE BLOOD COUNT 14.5 10^3/uL (4.0-10.0)
[2020-02-22 11:17] LABS: ACETAMINOPHEN LEVEL < 2.0 UG/ML (10.0-30.0); ALBUMIN 4.3 GM/DL (3.2-5.2); ALT/SGPT 75 U/L (12-78); AMPHETAMINES LEVEL URINE NEGATIVE (NEGATIVE); BARBITURATES URINE NEGATIVE (NEGATIVE); BENZODIAZEPINES URINE NEGATIVE (NEGATIVE); BILIRUBIN,DIRECT 0.3 MG/DL (0.0-0.2); BLOOD UREA NITROGEN 28 MG/DL (7-18); CALCIUM LEVEL 8.8 MG/DL (8.5-10.1); CANNABINOIDS URINE POSITIVE (NEGATIVE); CARBON DIOXIDE LEVEL 25 MEQ/L (21-32); CHLORIDE LEVEL 110 MEQ/L (98-107); COCAINE METABOLITE URINE NEGATIVE (NEGATIVE); CREATININE FOR GFR 1.29 MG/DL (0.55-1.30); ETHYL ALCOHOL (ETHANOL) < 0.003 % (0.000-0.010); GLOMERULAR FILTRATION RATE 45.3 (>51); GLUCOSE, FASTING 93 MG/DL (70-100); METHADONE URINE NEGATIVE (NEGATIVE); OPIATES URINE NEGATIVE (NEGATIVE); PHENCYCLIDINE URINE NEGATIVE (NEGATIVE); POTASSIUM SERUM 3.4 MEQ/L (3.5-5.1); SALICYLATE LEVEL < 1.7 MG/DL (5.0-30.0); SODIUM LEVEL 140 MEQ/L (136-145)
[2020-02-22] MEDS ORDERED: OLANZapine ORAL DISINTEGRATING TAB 5MG PO PRN (14:00)
[2020-02-22] MEDS ORDERED: MAALOX 30 ML SUSP *UDC PO PRN (14:00)
[2020-02-22] MEDS ORDERED: traZODone 50 MG TAB PO PRN (14:00)
[2020-02-22] MEDS ORDERED: MOM 30ML SUSPENSION UDC PO PRN (14:00)
[2020-02-22] MEDS ORDERED: OMEP-221 PO (14:29)
[2020-02-22] MEDS ORDERED: DULO1CAP4 PO (14:29)
[2020-02-22] MEDS ORDERED: HYDR-3363 PO (14:29)
[2020-02-22] MEDS ORDERED: IBUP200T45 PO (14:29)
[2020-02-22] MEDS ORDERED: VITA50005 PO (14:29)
[2020-02-22] MEDS ORDERED: TOPI50TA9 PO (14:29)
[2020-02-22] MEDS ORDERED: ZOCO80TA PO (14:29)
[2020-02-22] MEDS ORDERED: CALCTAB89 PO (14:30)
[2020-02-22] MEDS ORDERED: MAGN400T2 PO (14:30)
[2020-02-22] MEDS ORDERED: DICY10CA13 PO (14:34)
[2020-02-22 16:06] VITALS: BP 156/88
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
[2020-02-22] MEDS ORDERED: DICYCLOMINE 10 MG CAP PO PRN (17:15)
[2020-02-22] MEDS ORDERED: TOPIRAMATE (TopAMAX) 25 MG TAB PO ONE (19:30)
[2020-02-22] MEDS: ACETAMINOPHEN TAB 650MG DOSE (2X325MG) PO PRN (20:09)
[2020-02-22] MEDS: OLANZapine ORAL DISINTEGRATING TAB 5MG PO SCH (20:09)
[2020-02-22] MEDS: SIMVASTATIN 40 MG TAB PO SCH (20:09)
[2020-02-22] MEDS: CARVedilol 12.5 MG TAB PO SCH (20:10)
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
[2020-02-23 06:16] VITALS: BP 138/91
[2020-02-23] MEDS: MAGNESIUM OXIDE 400 MG TAB (MAG-OX) PO SCH (08:44)
[2020-02-23] MEDS: CARVedilol 12.5 MG TAB PO SCH ×2 (08:44→20:19)
[2020-02-23] MEDS: TOPIRAMATE (TopAMAX) 25 MG TAB PO SCH ×2 (08:44→20:18)
[2020-02-23] MEDS: amLODIPine 5 MG TAB PO SCH (08:45)
[2020-02-23] MEDS ORDERED: OLANZapine ORAL DISINTEGRATING TAB 5MG PO ONE (09:00)
[2020-02-23] MEDS ORDERED: FLUBLOK(EGG FREE)(QUAD)INFLUENZA VACC 0.5ML SYRINGE (90682)18YRS&OLDER IM ONE (09:00)
[2020-02-23] MEDS: ACETAMINOPHEN TAB 650MG DOSE (2X325MG) PO PRN (15:04)
[2020-02-23 16:16] VITALS: BP 115/71
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
[2020-02-23] MEDS: SIMVASTATIN 40 MG TAB PO SCH (20:18)
[2020-02-23] MEDS: OLANZapine ORAL DISINTEGRATING TAB 5MG PO SCH (20:19)
[2020-02-24 06:18] VITALS: BP 108/76
[2020-02-24] MEDS: MAGIC MOUTHWASH SUSPENSION BTL SS PRN ×3 (06:33→21:15)
[2020-02-24] MEDS: TOPIRAMATE (TopAMAX) 25 MG TAB PO SCH (08:37)
[2020-02-24] MEDS: CARVedilol 12.5 MG TAB PO SCH ×2 (08:37→20:12)
[2020-02-24] MEDS: amLODIPine 5 MG TAB PO SCH (08:38)
[2020-02-24] MEDS: MAGNESIUM OXIDE 400 MG TAB (MAG-OX) PO SCH (08:38)
[2020-02-24] MEDS: ACETAMINOPHEN TAB 650MG DOSE (2X325MG) PO PRN (10:12)
[2020-02-24] MEDS: IBUPROFEN 600 MG TAB PO PRN ×2 (13:09→20:13)
[2020-02-24 16:15] VITALS: BP 132/76
[2020-02-24] MEDS: OLANZapine ORAL DISINTEGRATING TAB 5MG PO SCH (20:13)
[2020-02-24] MEDS: SIMVASTATIN 40 MG TAB PO SCH (20:13)
[2020-02-24] MEDS ORDERED: TOPIRAMATE (TopAMAX) 100 MG TAB PO SCH (21:00)
--- NOTE | 2020-02-24 21:43 | MHIPN ---
DATE: 02/24/2020 VITAL SIGNS: Blood pressure 132/76, pulse 72, temperature 97.7. CHIEF COMPLAINT: Feels better. SUBJECTIVE: She is seen for followup in the presence of staff. She says that she has been feeling a bit better, feels ready to go home, says slept quite well. Appetite is okay. Says she received a message that she is not sure who it was from and when she replied it turned out to be her boyfriend, Jac. She says that she spoke only for a short while. She has been in touch with other people, including from the [employer], and is making plans to return to her own place. Says is planning to move but that may be held back because of the Coronavirus crisis. Says does not feel as distraught. MENTAL STATUS EXAMINATION: She is neat. She is cooperative. Appears more relaxed, though mildly anxious. There is no agitation. No psychomotor retardation. She is coherent. Denies any suicidal thoughts or intents. No homicidal ideas or intents. No overt delusions elicited, though it is possible that this might just be under the surface. Cognition is grossly intact. Judgment and insight remain questionable. ASSESSMENT: 1. Major depressive disorder, recurrent, possibly with psychotic features. 2. Bipolar disorder, current episode manic with psychosis. She is clinically improved. She is less anxious and less depressed overall. PLAN: Continue current care and current medication regimen as well. I would suggest obtaining collateral information to help ascertain what has been going on recently, as some of the ideas and statements that she has had may be verging on being not entirely real. She will see the psychiatrist tomorrow and further recommendations will be made, including planning for discharge shortly. We met for 15 minutes.
[2020-02-25 06:02] VITALS: BP 144/90
[2020-02-25 08:35] VITALS: BP 159/88
[2020-02-25] MEDS: CARVedilol 12.5 MG TAB PO SCH (08:35)
[2020-02-25] MEDS: TOPIRAMATE (TopAMAX) 25 MG TAB PO SCH (08:36)
[2020-02-25] MEDS: MAGNESIUM OXIDE 400 MG TAB (MAG-OX) PO SCH (08:37)
[2020-02-25] MEDS: IBUPROFEN 600 MG TAB PO PRN (08:37)
[2020-02-25] MEDS: amLODIPine 5 MG TAB PO SCH (08:37)
[2020-02-25] MEDS: MAGIC MOUTHWASH SUSPENSION BTL SS PRN (08:39)
[2020-02-25] MEDS ORDERED: OLAN5ZYD PO (11:33)
--- NOTE | 2020-02-25 11:34 | MHDSPDOC ---
[facility] Discharge Summary Discharge Summary DATE OF ADMISSION: Feb 22, 2020 at 13:48 DATE OF DISCHARGE: 02/25/20 Discharge Shi Velasquez MRN: N/A Date of : N/A Date of Service: 02/25/2020 Diagnoses Major depressive disorder, moderate to severe, recurrent, in full remission History of Present Illness The patient is a 59-year-old woman with a history of reported depression presents with increasing depressive symptoms and severe hopelessness. Reported some significant depressive mood based symptoms including potentially some psychotic symptoms upon her presentation. Consultants Involved Hospitalist/PCP screening Treatment and Progress On The Unit The patient was admitted to the inpatient mental health unit and started on Zyprexa 5 mg twice a day. She had not been resumed on her home duloxetine, but had responded well to the Zyprexa titrating it to only 5 mg nightly for her mood related psychosis symptoms that resolved without much issue. She did well on the unit, had no behavior problems, consistently denied any suicidal or homicidal ideation and had no behavioral problems attending groups when needed and made improvements quite quickly over the weekend. She then reports that she was ready to go home and had requested discharge. She reports that she wanted to continue on her Cymbalta when she left. Discharge Assessment A 59-year-old woman with a history of depression. Presents with mood related delusions. Treated with a low dose of an antipsychotic as she had been previous ly on an SNRI. Responds well without any complications. The patient at the time of discharge did not meet criteria for involuntary admission/extension due to having a normal mental status exam, fair insight into the situation, They are engaged in the discharge process, as well as being friendly and amenable in behavioral control and havent been engaging in any observed concerning behavior or ideation recently. They decline voluntary extension/admission at this time and must be discharged in good roger, as Im unable to make a case for holding the patient against their will. They may have historical risk factors of admissions and other interactions with psychiatry however, those are not modifiable from a clinical perspective. The patient will need to be discharged in good roger. Mental Status Examination General: Well dressed with good hygiene Speech: Spontaneous and fluid Thought processes: Linear and logical MSK: Smooth and coordinated gait, no signs of tremors or involuntary orofacial movements Thought content: Future orientated Abstract reasoning, and computation: Intact Description of associations: Intact Description of abnormal or psychotic thoughts: Denies any suicidal or homicidal ideation. Denies any auditory or visual hallucinations. Does not appear to be responding to internal stimuli. Does not appear to be endorsing any bizarre or paranoid ideation. Judgment: fair Insight: fair Orientation: Alert and orientated 3 Cognition: Grossly normal Recent and remote memory: Intact Attention span and concentration: Intact Fund of knowledge: Adequate Mood: "okay" Affect: Euthymic with a full range Follow Up The social work team worked during the predischarge meeting in order to evaluate for further issues of lethality address them fully before discharge. They worked on safety planning with the patient's family members in order to ensure that the patient will have a safe and effective discharge. Time Spent The amount of time spent in the coordination of care for this patient was approximately 45 minutes. Tuesday Vital Signs/I&Os Vital Signs Date Time Temp Pulse Resp B/P (MAP) Pulse Ox O2 Delivery O2 Flow Rate FiO2 02/25/20 08:35 82 159/88 02/25/20 06:02 98.3 18 97 Room Air Medications Scheduled Amlodipine Besylate (Amlodipine Besylate) 5 Mg Tab, 5 MG PO DAILY, (Reported) Calcium Carbonate (Calcium) 600 Mg Tablet, 600 MG PO DAILY, (Reported) Carvedilol (Carvedilol) 12.5 Mg Tab, 12.5 MG PO BID, (Reported) Duloxetine Hcl (Duloxetine HCl) 20 Mg Capsule.dr, 20 MG PO DAILY, (Reported) Magnesium Oxide (Magnesium Oxide) 400 Mg Tablet, 400 MG PO DAILY, (Reported) Olanzapine (Olanzapine) 5 Mg Tablet, 1 TAB PO QPM for mood for 7 Days, #7 Omeprazole (Omeprazole) 40 Mg Capsule.dr, 40 MG PO DAILY, (Reported) Simethicone (Simethicone) 125 Mg Cap, 125 MG PO DAILY, (Reported) Simvastatin (Zocor) 80 Mg Tablet, 80 MG PO QPM, (Reported) Topiramate (Topiramate) 100 Mg Tab, 100 MG PO QHS, (Reported) Topiramate (Topiramate) 50 Mg Tablet, 50 MG PO QAM, (Reported) Scheduled PRN Acetaminophen (Mapap) 500 Mg Tab, 500 MG PO Q6H PRN for PAIN, (Reported) Dicyclomine HCl (Dicyclomine HCl) 10 Mg Capsule, 10 MG PO TID PRN for SPASMS, (Reported) Ibuprofen (Ibu-200) 200 Mg Tablet, 600 MG PO TID PRN for PAIN, (Reported) Naproxen Sodium (Naproxen Sodium) 220 Mg Tab, 220 MG PO Q12H PRN for PAIN, (Reported) Tizanidine HCl (Tizanidine HCl) 4 Mg Tablet, 4 MG PO TID PRN for MUSCLE SPASMS, (Reported) Tramadol HCl (Tramadol HCl) 50 Mg Tab, 50 MG PO TID PRN for PAIN, (Reported) Allergies Coded Allergies: lamotrigine (Verified Allergy, Unknown, numbness, 04/18/19) KONG OTERO DO Feb 25, 2020 11:34
[2020-02-25] MEDS ORDERED: OLAN5TAB PO (13:42)
== END 2020-02-25 14:45 | disposition home or self-care (01) | DRG 751 ==
LOC: M ED 09:29 → M ED INP 13:48 → M PSY 14:20
PROVIDERS: ADMIT Psychiatry & Neurology Addiction Medicine; ATTEND Psychiatry & Neurology Addiction Medicine
DX: F33.3 Major depressive disorder, recurrent, severe with psychotic symptoms (principal); I10 Essential (primary) hypertension; E78.5 Hyperlipidemia, unspecified; K21.9 Gastro-esophageal reflux disease without esophagitis; M19.90 Unspecified osteoarthritis, unspecified site; G89.29 Other chronic pain; M54.9 Dorsalgia, unspecified; F41.9 Anxiety disorder, unspecified; Z63.0 Problems in relationship with spouse or partner; Z79.899 Other long term (current) drug therapy; Z88.6 Allergy status to analgesic agent; E66.9 Obesity, unspecified; Z68.29 Body mass index [BMI] 29.0-29.9, adult; Z91.14 Patient's other noncompliance with medication regimen; Z91.411 Personal history of adult psychological abuse

== ENCOUNTER → 2020-04-09 | Outpatient (REF) | payer OTHER ==
[~2020-04-09] MED LIST changes: +CALCTAB89 PO; +DICY10CA13 PO; +DULO1CAP4 PO; +HYDR-3363 PO; +IBUP200T45 PO; +MAGN400T2 PO; +OLAN5TAB PO; +OLAN5ZYD PO; +OMEP-221 PO; +TIZA4TAB4 PO; +TOPI50TA9 PO; +VITA50005 PO; +ZOCO80TA PO
[2020-04-09 10:32] LABS: BASO # 0.1 10^3/uL (0.0-0.2); BASO % 0.8 % (0.0-1.0); EOS # 0.4 10^3/uL (0.0-0.5); EOS % 5.2 % (0.0-3.0); HEMOGLOBIN 15.2 g/dl (12.0-15.5); LYMPH # 1.9 10^3/uL (1.5-5.0); LYMPH % 23.2 % (24.0-44.0); MEAN CORPUSCULAR HEMOGLOBIN 33.1 pg (27.0-33.0); MEAN CORPUSCULAR VOLUME 100.2 fl (80.0-96.0); MONO # 0.8 10^3/uL (0.0-0.8); MONO % 9.4 % (0.0-5.0); NEUTROPHILS # 4.9 10^3/uL (1.5-8.5); NEUTROPHILS % 60.9 % (36.0-66.0); PLATELET COUNT, AUTOMATED 270 10^3/uL (150-450); RED BLOOD COUNT 4.59 10^6/uL (4.00-5.40)
[2020-04-09 10:48] LABS: ALT/SGPT 37 U/L (12-78); BILIRUBIN,TOTAL 0.5 MG/DL (0.2-1.0); BLOOD UREA NITROGEN 24 MG/DL (7-18); CALCIUM LEVEL 9.4 MG/DL (8.5-10.1); CARBON DIOXIDE LEVEL 26 MEQ/L (21-32); CHLORIDE LEVEL 111 MEQ/L (98-107); CHOLESTEROL LEVEL 197 MG/DL (<200); CHOLESTEROL RISK RATIO 3.126 (<5); CPK CREATINE PHOSPHOKINASE 178 U/L (26-192); CREATININE FOR GFR 0.92 MG/DL (0.55-1.30); FREE T4 0.97 NG/DL (0.76-1.46); GLOMERULAR FILTRATION RATE > 60.0 (>51); GLUCOSE, FASTING 117 MG/DL (70-100); HDL CHOLESTEROL 63 MG/DL (>40); LDL CHOLESTEROL 109 MG/DL (<100); NON-HDL-C 134 MG/DL; POTASSIUM SERUM 5.1 MEQ/L (3.5-5.1); SODIUM LEVEL 143 MEQ/L (136-145); TRIGLYCERIDES LEVEL 123 MG/DL (<150)
[2020-04-09 10:51] LABS: PTH INTACT 53.2 PG/ML (18.5-88.0); TOTAL 25(OH) VITAMIN D 60.2 NG/ML (30.0-100.0)
== END ==
LOC: M SFHCPLAZ 09:01
PROVIDERS: ATTEND Physician Assistant Medical
DX: E78.5 Hyperlipidemia, unspecified (principal); I10 Essential (primary) hypertension; E55.9 Vitamin D deficiency, unspecified; N18.2 Chronic kidney disease, stage 2 (mild); K59.00 Constipation, unspecified; M89.9 Disorder of bone, unspecified

== ENCOUNTER → 2020-05-02 | Outpatient (CLI) | payer OTHER ==
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
== END ==
LOC: M PAIN 10:30
PROVIDERS: ATTEND Nurse Practitioner Family
DX: M43.07 Spondylolysis, lumbosacral region (principal)

== ENCOUNTER → 2020-09-23 | Outpatient (CLI) | payer OTHER ==
[~2020-09-23] MED LIST changes: +AMLO1TAB24 PO; -AMLO5TAB6 PO
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
== END ==
LOC: M PAIN 10:15
PROVIDERS: ATTEND Nurse Practitioner Family
DX: M46.1 Sacroiliitis, not elsewhere classified (principal); M47.817 Spondylosis without myelopathy or radiculopathy, lumbosacral region; I10 Essential (primary) hypertension; M51.36 Other intervertebral disc degeneration, lumbar region; E66.9 Obesity, unspecified; R73.01 Impaired fasting glucose; F31.9 Bipolar disorder, unspecified; K21.9 Gastro-esophageal reflux disease without esophagitis; E55.9 Vitamin D deficiency, unspecified; K58.2 Mixed irritable bowel syndrome; Z87.891 Personal history of nicotine dependence; Z79.82 Long term (current) use of aspirin; Z79.891 Long term (current) use of opiate analgesic; Z79.899 Other long term (current) drug therapy; Z88.8 Allergy status to other drugs, medicaments and biological substances; Z91.048 Other nonmedicinal substance allergy status; Z68.29 Body mass index [BMI] 29.0-29.9, adult

== ENCOUNTER → 2020-09-30 | Outpatient (CLI) | payer OTHER ==
--- NOTE | 2020-09-30 14:48 | REPVR ---
PROCEDURE INFORMATION: Exam: MR Lumbar Spine Without Contrast. Exam date and time: 09/30/2020 11:33 AM Age: 60 years old Clinical indication: Pain; Other: Sacroiliitis TECHNIQUE: Imaging protocol: Multiplanar magnetic resonance images of the lumbar spine without intravenous contrast. COMPARISON: MRI-Spine, L.S. without con 10/29/2014 6:22 PM FINDINGS: Vertebrae: There is no fracture or listhesis. Normal vertebral body alignment and heights are preserved. There is severe intervertebral disc space loss at L5/S1, with endplate changes. Spinal cord: Normal signal. No cord compression. L1-L2: There is diffuse disc bulging. There is mild facet and ligamentous hypertrophy. There is mild canal stenosis. There is moderate to severe right and moderate left neural foraminal narrowing. L2-L3: There is diffuse disc bulging. There is moderate to severe facet and ligamentous hypertrophy. There is mild canal stenosis. There is mild bilateral neural foraminal narrowing. L3-L4: There is diffuse disc bulging. There is moderate facet and ligamentous hypertrophy. There is mild canal stenosis. There is [id number] bilateral neural foraminal narrowing. L4-L5: There is diffuse disc bulging. There is moderate facet and ligamentous hypertrophy. There is moderate bilateral neural foraminal narrowing. L5-S1: There is disc bulging/uncovering related to listhesis. There is moderate facet hypertrophy. There is moderate bilateral neural foraminal narrowing. Soft tissues: Unremarkable. Sacrum: The sacroiliac joints appear normal. There is no fluid within the joint spaces. IMPRESSION: 1. Degenerative disc disease and spondylosis as described. 2. No overt evidence of sacroiliitis. Electronically signed by: Zuly Shen On 09/30/2020 14:48:00 PM
== END ==
LOC: M RAD 10:25
PROVIDERS: ATTEND Nurse Practitioner Family
DX: M46.1 Sacroiliitis, not elsewhere classified (principal)

== ENCOUNTER → 2020-10-14 | Outpatient (CLI) | payer OTHER ==
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
== END ==
LOC: M PAIN 11:30
PROVIDERS: ATTEND Nurse Practitioner Family
DX: M47.897 Other spondylosis, lumbosacral region (principal); E66.9 Obesity, unspecified; R73.01 Impaired fasting glucose; F31.9 Bipolar disorder, unspecified; K21.9 Gastro-esophageal reflux disease without esophagitis; E55.9 Vitamin D deficiency, unspecified; K58.2 Mixed irritable bowel syndrome; I65.21 Occlusion and stenosis of right carotid artery; I10 Essential (primary) hypertension; Z87.891 Personal history of nicotine dependence; Z79.82 Long term (current) use of aspirin; Z79.891 Long term (current) use of opiate analgesic; Z79.899 Other long term (current) drug therapy; Z88.8 Allergy status to other drugs, medicaments and biological substances; Z91.048 Other nonmedicinal substance allergy status; Z68.28 Body mass index [BMI] 28.0-28.9, adult

== ENCOUNTER → 2020-11-25 | Outpatient (CLI) | payer OTHER ==
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
== END ==
LOC: M PAIN 11:30
PROVIDERS: ATTEND Nurse Practitioner Family
DX: M47.816 Spondylosis without myelopathy or radiculopathy, lumbar region (principal); G89.29 Other chronic pain; R73.01 Impaired fasting glucose; K21.9 Gastro-esophageal reflux disease without esophagitis; E55.9 Vitamin D deficiency, unspecified; Z86.59 Personal history of other mental and behavioral disorders; Z87.891 Personal history of nicotine dependence; Z88.8 Allergy status to other drugs, medicaments and biological substances; Z79.82 Long term (current) use of aspirin; Z79.899 Other long term (current) drug therapy

== ENCOUNTER → 2020-12-23 | Outpatient (REF) | payer OTHER ==
[2020-12-23 18:07] LABS: BASO # 0.1 10^3/uL (0.0-0.2); BASO % 0.7 % (0.0-1.0); EOS # 0.6 10^3/uL (0.0-0.5); EOS % 7.1 % (0.0-3.0); HEMATOCRIT 46.6 % (36.0-47.0); HEMOGLOBIN 14.6 g/dl (12.0-15.5); LYMPH # 2.6 10^3/uL (1.5-5.0); LYMPH % 31.7 % (24.0-44.0); MEAN CORPUSCULAR HEMOGLOBIN 30.6 pg (27.0-33.0); MEAN CORPUSCULAR HGB CONC 31.3 g/dl (32.0-36.5); MEAN CORPUSCULAR VOLUME 97.7 fl (80.0-96.0); MONO # 0.6 10^3/uL (0.0-0.8); MONO % 7.4 % (0.0-5.0); NEUTROPHILS # 4.3 10^3/uL (1.5-8.5); NEUTROPHILS % 52.6 % (36.0-66.0); PLATELET COUNT, AUTOMATED 296 10^3/uL (150-450); RED BLOOD COUNT 4.77 10^6/uL (4.00-5.40); WHITE BLOOD COUNT 8.1 10^3/uL (4.0-10.0)
[2020-12-23 18:29] LABS: ALBUMIN 4.1 GM/DL (3.2-5.2); BILIRUBIN,TOTAL 0.2 MG/DL (0.2-1.0); CALCIUM LEVEL 10.5 MG/DL (8.5-10.1); CHOLESTEROL RISK RATIO 2.36 (<5); CREATININE FOR GFR 1.04 MG/DL (0.55-1.30); FREE T4 0.75 NG/DL (0.76-1.46); GLOMERULAR FILTRATION RATE 57.9 (>51); POTASSIUM SERUM 5.2 MEQ/L (3.5-5.1); TOTAL PROTEIN 7.4 GM/DL (6.4-8.2)
[2020-12-23 18:34] LABS: PTH INTACT 28.9 PG/ML (18.5-88.0); TOTAL 25(OH) VITAMIN D 57.4 NG/ML (30.0-100.0)
== END ==
LOC: M SFHCPLAZ 15:51
PROVIDERS: ATTEND Physician Assistant Medical
DX: M47.816 Spondylosis without myelopathy or radiculopathy, lumbar region (principal); I10 Essential (primary) hypertension; F32.9 Major depressive disorder, single episode, unspecified; E78.5 Hyperlipidemia, unspecified; E55.9 Vitamin D deficiency, unspecified

== ENCOUNTER → 2020-12-26 | Outpatient (CLI) | payer OTHER | LOC: M LABSMTC 10:59 | PROVIDERS: ATTEND Anesthesiology | DX: Z20.822 Contact with and (suspected) exposure to COVID-19 (principal) ==

== ENCOUNTER → 2020-12-31 | Outpatient (CLI) | payer OTHER ==
[~2020-12-31] MED LIST changes: +BUPIVACAINE HCL 0.25% 30ML VIAL As Ordered ONE; +ISOVUE-M 300 61% 15ML VIAL As Ordered ONE; +LIDOCAINE 1% SDV 30ML VIAL As Ordered ONE; +TRIAMCINOLONE ACETONIDE SUSP 40 MG/ML VIAL (J3301) As Ordered ONE; +diazePAM 5MG TABLET As Ordered ONE; +oxyCODONE 5MG TAB As Ordered ONE
--- NOTE | 2020-12-31 16:56 | REP ---
INDICATION: BILATERAL LUMBAR THERAPEUTIC FACET BLOCK. COMPARISON: None. TECHNIQUE: Four views. 34.9 seconds of fluoroscopy time is reported. FINDINGS: A sequence of 4 last image hold fluoroscopically obtained spot radiograph(s) of the lumbar spine document(s) needle position(s) and contrast injection associated with injection procedure. IMPRESSION: Procedural imaging. <Electronically signed by Kuldip Hills > 12/31/20 6716
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
== END ==
LOC: M PAIN 10:00
PROVIDERS: ATTEND Anesthesiology
DX: M47.817 Spondylosis without myelopathy or radiculopathy, lumbosacral region (principal); M47.816 Spondylosis without myelopathy or radiculopathy, lumbar region; R73.01 Impaired fasting glucose; K21.9 Gastro-esophageal reflux disease without esophagitis; E55.9 Vitamin D deficiency, unspecified; Z86.59 Personal history of other mental and behavioral disorders; Z87.891 Personal history of nicotine dependence; Z88.8 Allergy status to other drugs, medicaments and biological substances; Z79.82 Long term (current) use of aspirin; Z79.899 Other long term (current) drug therapy
CPT/HCPCS: 64493; 64494; J3301; Q9967

== ENCOUNTER → 2021-01-22 | Outpatient (CLI) | payer OTHER ==
[~2021-01-22] MED LIST changes: -BUPIVACAINE HCL 0.25% 30ML VIAL As Ordered ONE; -ISOVUE-M 300 61% 15ML VIAL As Ordered ONE; -LIDOCAINE 1% SDV 30ML VIAL As Ordered ONE; -TRIAMCINOLONE ACETONIDE SUSP 40 MG/ML VIAL (J3301) As Ordered ONE; -diazePAM 5MG TABLET As Ordered ONE; -oxyCODONE 5MG TAB As Ordered ONE
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
== END ==
LOC: M PAIN 10:45
PROVIDERS: ATTEND Nurse Practitioner Family
DX: M47.816 Spondylosis without myelopathy or radiculopathy, lumbar region (principal); G89.29 Other chronic pain; R73.01 Impaired fasting glucose; K21.9 Gastro-esophageal reflux disease without esophagitis; E55.9 Vitamin D deficiency, unspecified; Z86.59 Personal history of other mental and behavioral disorders; Z87.891 Personal history of nicotine dependence; Z88.8 Allergy status to other drugs, medicaments and biological substances; Z91.09 Other allergy status, other than to drugs and biological substances; Z79.82 Long term (current) use of aspirin; Z79.899 Other long term (current) drug therapy

== ENCOUNTER → 2021-01-28 | Outpatient (CLI) | payer OTHER | LOC: M LABSMTC 10:44 | PROVIDERS: ATTEND Anesthesiology | DX: Z20.828 Contact with and (suspected) exposure to other viral communicable diseases (principal); Z11.59 Encounter for screening for other viral diseases ==

== ENCOUNTER → 2021-02-02 | Outpatient (CLI) | payer OTHER ==
[~2021-02-02] MED LIST changes: +BUPIVACAINE HCL 0.25% 30ML VIAL As Ordered ONE; +ISOVUE-M 300 61% 15ML VIAL As Ordered ONE; +LIDOCAINE 1% SDV 30ML VIAL As Ordered ONE
--- NOTE | 2021-02-02 12:41 | REP ---
INDICATION: BILATERAL DIAGNOSTIC LUMBAR FACET BLOCK L4-L5, L5-S1. COMPARISON: None. TECHNIQUE: 4 views. 23.3 seconds of fluoroscopy time is reported. FINDINGS: A sequence of 4 last image hold fluoroscopically obtained spot radiograph(s) of the lumbar spine document(s) needle position(s) and contrast injection associated with injection procedure. IMPRESSION: Procedural imaging. <Electronically signed by Kuldip Hills > 02/02/21 [id number]
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
== END ==
LOC: M PAIN 10:20
PROVIDERS: ATTEND Anesthesiology
DX: M47.816 Spondylosis without myelopathy or radiculopathy, lumbar region (principal); M47.817 Spondylosis without myelopathy or radiculopathy, lumbosacral region; R73.01 Impaired fasting glucose; K21.9 Gastro-esophageal reflux disease without esophagitis; E55.9 Vitamin D deficiency, unspecified; Z86.59 Personal history of other mental and behavioral disorders; Z87.891 Personal history of nicotine dependence; Z88.8 Allergy status to other drugs, medicaments and biological substances; Z91.09 Other allergy status, other than to drugs and biological substances; Z79.82 Long term (current) use of aspirin; Z79.899 Other long term (current) drug therapy
CPT/HCPCS: 64493; 64494; Q9967

== ENCOUNTER → 2021-02-17 | Outpatient (CLI) | payer OTHER ==
[~2021-02-17] MED LIST changes: -BUPIVACAINE HCL 0.25% 30ML VIAL As Ordered ONE; -ISOVUE-M 300 61% 15ML VIAL As Ordered ONE; -LIDOCAINE 1% SDV 30ML VIAL As Ordered ONE
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
== END ==
LOC: M PAIN 10:45
PROVIDERS: ATTEND Nurse Practitioner Family
DX: M47.816 Spondylosis without myelopathy or radiculopathy, lumbar region (principal); G89.29 Other chronic pain; R73.01 Impaired fasting glucose; K21.9 Gastro-esophageal reflux disease without esophagitis; E55.9 Vitamin D deficiency, unspecified; Z86.59 Personal history of other mental and behavioral disorders; Z87.891 Personal history of nicotine dependence; Z88.8 Allergy status to other drugs, medicaments and biological substances; Z91.09 Other allergy status, other than to drugs and biological substances; Z79.82 Long term (current) use of aspirin; Z79.899 Other long term (current) drug therapy

== ENCOUNTER → 2021-03-05 | Outpatient (CLI) | payer OTHER | LOC: M LABSMTC 10:39 | PROVIDERS: ATTEND Anesthesiology | DX: Z20.822 Contact with and (suspected) exposure to COVID-19 (principal) ==

== ENCOUNTER → 2021-03-10 | Outpatient (CLI) | payer OTHER ==
[~2021-03-10] MED LIST changes: +BUPIVACAINE HCL 0.25% 30ML VIAL As Ordered ONE; +LIDOCAINE 1% SDV 30ML VIAL As Ordered ONE; +dexameTHASONE 10MG/1ML VIAL PRES.FREE (J1100 PER 1MG) As Ordered ONE; +diazePAM 5MG TABLET As Ordered ONE
--- NOTE | 2021-03-11 09:10 | REP ---
INDICATION: LEFT STANDARD RADIOFREQUENCY L4-L5, L5-S1. COMPARISON: None. TECHNIQUE: Three views views. Twenty-seven seconds of fluoroscopy time is reported. FINDINGS: A sequence of 3 last image hold fluoroscopically obtained spot radiograph(s) of the lumbar spine document(s) needle position(s) and contrast injection associated with injection procedure. IMPRESSION: Procedural imaging. <Electronically signed by Kuldip Hills > 03/11/21 [id number]
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
== END ==
LOC: M PAIN 14:00
PROVIDERS: ATTEND Anesthesiology
DX: M47.816 Spondylosis without myelopathy or radiculopathy, lumbar region (principal); M47.817 Spondylosis without myelopathy or radiculopathy, lumbosacral region; R73.01 Impaired fasting glucose; K21.9 Gastro-esophageal reflux disease without esophagitis; E55.9 Vitamin D deficiency, unspecified; Z86.59 Personal history of other mental and behavioral disorders; Z87.891 Personal history of nicotine dependence; Z88.8 Allergy status to other drugs, medicaments and biological substances; Z91.09 Other allergy status, other than to drugs and biological substances; Z79.82 Long term (current) use of aspirin; Z79.899 Other long term (current) drug therapy
CPT/HCPCS: 64635; 64636; J1100

== ENCOUNTER → 2021-03-25 | Outpatient (CLI) | payer OTHER ==
[~2021-03-25] MED LIST changes: -BUPIVACAINE HCL 0.25% 30ML VIAL As Ordered ONE; -LIDOCAINE 1% SDV 30ML VIAL As Ordered ONE; -dexameTHASONE 10MG/1ML VIAL PRES.FREE (J1100 PER 1MG) As Ordered ONE; -diazePAM 5MG TABLET As Ordered ONE
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
== END ==
LOC: M PAIN 10:30
PROVIDERS: ATTEND Nurse Practitioner Family
DX: M47.816 Spondylosis without myelopathy or radiculopathy, lumbar region (principal); G89.29 Other chronic pain; R73.01 Impaired fasting glucose; K21.9 Gastro-esophageal reflux disease without esophagitis; E55.9 Vitamin D deficiency, unspecified; Z86.59 Personal history of other mental and behavioral disorders; Z87.891 Personal history of nicotine dependence; Z88.8 Allergy status to other drugs, medicaments and biological substances; Z91.09 Other allergy status, other than to drugs and biological substances; Z79.82 Long term (current) use of aspirin; Z79.899 Other long term (current) drug therapy

== ENCOUNTER → 2021-04-29 | Outpatient (REF) | payer OTHER ==
[2021-04-29 18:10] LABS: APPEARANCE, URINE CLOUDY (CLEAR); BACTERIA, URINE AUTO 2+ (NEGATIVE); BILIRUBIN, URINE AUTO 1+ (NEGATIVE); BLOOD, URINE BLOOD 1+ (NEGATIVE); CALCIUM OXALATE CRYSTALS LARGE; COLOR, URINE AMBER (YELLOW); GLUCOSE, URINE (UA) AUTO NEGATIVE (NEGATIVE); KETONE, URINE AUTO TRACE mg/dL (NEGATIVE); LEUKOCYTE ESTERASE, URINE AUTO 2+ (NEGATIVE); MUCUS, URINE LARGE (NEGATIVE); NITRITE, URINE AUTO NEGATIVE (NEGATIVE); PROTEIN, URINE AUTO 2+ mg/dL (NEGATIVE); RBC, URINE AUTO 53 /HPF (0-3); SPECIFIC GRAVITY URINE AUTO 1.024 (1.002-1.035); SQUAMOUS EPITHELIAL CELL UR AU 1 /HPF (0-6); WBC, URINE AUTO TNTC /HPF (0-3)
== END ==
LOC: M SFHCPLAZ 17:08
PROVIDERS: ATTEND Physician Assistant Medical
DX: N39.0 Urinary tract infection, site not specified (principal)

== ENCOUNTER → 2021-06-25 | Outpatient (CLI) | payer OTHER ==
[~2021-06-25] MED LIST changes: +ERGO500029 PO; +OLAN1TAB16 PO; -OLAN5TAB PO; -VITA50005 PO
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
== END ==
LOC: M PAIN 11:15
PROVIDERS: ATTEND Nurse Practitioner Family
DX: M51.16 Intervertebral disc disorders with radiculopathy, lumbar region (principal); G89.29 Other chronic pain; R73.01 Impaired fasting glucose; K21.9 Gastro-esophageal reflux disease without esophagitis; E55.9 Vitamin D deficiency, unspecified; Z86.59 Personal history of other mental and behavioral disorders; Z87.891 Personal history of nicotine dependence; Z88.8 Allergy status to other drugs, medicaments and biological substances; Z91.09 Other allergy status, other than to drugs and biological substances; Z79.82 Long term (current) use of aspirin; Z79.899 Other long term (current) drug therapy

== ENCOUNTER → 2021-07-08 | Outpatient (CLI) | payer OTHER | LOC: M LABSMTC 10:12 | PROVIDERS: ATTEND Anesthesiology | DX: Z01.812 Encounter for preprocedural laboratory examination (principal); Z11.52 Encounter for screening for COVID-19 ==

== ENCOUNTER → 2021-07-13 | Outpatient (CLI) | payer OTHER ==
[~2021-07-13] MED LIST changes: +ISOVUE-M 300 61% 15ML VIAL As Ordered ONE; +LIDOCAINE 1% SDV 30ML VIAL As Ordered ONE; +diphenhydrAMINE 25MG CAP As Ordered ONE; +methylPREDNISolone SUSP 40MG/ML 1ML VIAL (DEPO MEDROL) As Ordered ONE
--- NOTE | 2021-07-13 10:32 | REP ---
INDICATION: LUMBAR EPIDURAL STEROID INJECTION. COMPARISON: None. TECHNIQUE: Three C-arm views lumbar spine. FINDINGS: A needle is seen at the L5-S1 level. A small amount of contrast is injected. IMPRESSION: 8 seconds of fluoroscopy time was utilized. <Electronically signed by Roney Flores > 07/13/21 1025
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
== END ==
LOC: M PAIN 08:30
PROVIDERS: ATTEND Anesthesiology
DX: M51.16 Intervertebral disc disorders with radiculopathy, lumbar region (principal); K21.9 Gastro-esophageal reflux disease without esophagitis; E55.9 Vitamin D deficiency, unspecified; Z86.59 Personal history of other mental and behavioral disorders; Z87.891 Personal history of nicotine dependence; Z88.8 Allergy status to other drugs, medicaments and biological substances; Z79.82 Long term (current) use of aspirin; Z79.891 Long term (current) use of opiate analgesic; Z79.899 Other long term (current) drug therapy
CPT/HCPCS: 62323; J1030; Q9967

== ENCOUNTER → 2021-09-24 | Outpatient (REF) | payer OTHER ==
[~2021-09-24] MED LIST changes: -IBUP200T45 PO; +IBUP200T46 PO; -ISOVUE-M 300 61% 15ML VIAL As Ordered ONE; -LIDOCAINE 1% SDV 30ML VIAL As Ordered ONE; -diphenhydrAMINE 25MG CAP As Ordered ONE; -methylPREDNISolone SUSP 40MG/ML 1ML VIAL (DEPO MEDROL) As Ordered ONE
[2021-09-24 17:53] LABS: BASO # 0.1 10^3/uL (0.0-0.2); EOS # 0.9 10^3/uL (0.0-0.5); EOS % 11.1 % (0.0-3.0); HEMATOCRIT 46.5 % (36.0-47.0); HEMOGLOBIN 14.8 g/dl (12.0-15.5); LYMPH # 2.2 10^3/uL (1.5-5.0); LYMPH % 28.4 % (24.0-44.0); MEAN CORPUSCULAR HEMOGLOBIN 31.7 pg (27.0-33.0); MEAN CORPUSCULAR HGB CONC 31.8 g/dl (32.0-36.5); MEAN CORPUSCULAR VOLUME 99.6 fl (80.0-96.0); MONO # 0.6 10^3/uL (0.0-0.8); MONO % 7.7 % (2.0-8.0); NEUTROPHILS % 51.5 % (36.0-66.0); PLATELET COUNT, AUTOMATED 262 10^3/uL (150-450); RED BLOOD COUNT 4.67 10^6/uL (4.00-5.40); WHITE BLOOD COUNT 7.8 10^3/uL (4.0-10.0)
[2021-09-24 17:54] LABS: APPEARANCE, URINE CLOUDY (CLEAR); BACTERIA, URINE AUTO 1+ (NEGATIVE); BILIRUBIN, URINE AUTO NEGATIVE (NEGATIVE); BLOOD, URINE BLOOD 2+ (NEGATIVE); CALCIUM OXALATE CRYSTALS LARGE; COLOR, URINE YELLOW (YELLOW); GLUCOSE, URINE (UA) AUTO NEGATIVE (NEGATIVE); KETONE, URINE AUTO TRACE mg/dL (NEGATIVE); LEUKOCYTE ESTERASE, URINE AUTO 2+ (NEGATIVE); MUCUS, URINE SMALL (NEGATIVE); NITRITE, URINE AUTO NEGATIVE (NEGATIVE); PROTEIN, URINE AUTO 2+ mg/dL (NEGATIVE); RBC, URINE AUTO 51 /HPF (0-3); SQUAMOUS EPITHELIAL CELL UR AU 1 /HPF (0-6); WBC, URINE AUTO 148 /HPF (0-3)
[2021-09-24 18:34] LABS: BILIRUBIN,TOTAL 0.4 MG/DL (0.2-1.0); CALCIUM LEVEL 9.9 MG/DL (8.5-10.1); CREATININE FOR GFR 1.03 MG/DL (0.55-1.30); FREE T4 0.96 NG/DL (0.76-1.46); GLOMERULAR FILTRATION RATE 58.4 (>51); POTASSIUM SERUM 4.4 MEQ/L (3.5-5.1); THYROID STIMULATING HORMONE 2.29 uIU/ML (0.358-3.740); TOTAL PROTEIN 7.1 GM/DL (6.4-8.2)
== END ==
LOC: M SFHCPLAZ 16:55 → M PLALAB 16:55
PROVIDERS: ATTEND Physician Assistant Medical
DX: I10 Essential (primary) hypertension (principal); N39.0 Urinary tract infection, site not specified; E55.9 Vitamin D deficiency, unspecified; E66.3 Overweight

== ENCOUNTER → 2021-10-29 | Outpatient (CLI) | payer OTHER ==
[~2021-10-29] MED LIST changes: -OMEP-221 PO; +OMEP40CA5 PO; +TIZA10TA PO; -TIZA4TAB4 PO
== END ==
LOC: M PAIN 10:00
PROVIDERS: ATTEND Anesthesiology
DX: M47.816 Spondylosis without myelopathy or radiculopathy, lumbar region (principal); G89.29 Other chronic pain; K21.9 Gastro-esophageal reflux disease without esophagitis; E55.9 Vitamin D deficiency, unspecified; Z86.59 Personal history of other mental and behavioral disorders; Z87.891 Personal history of nicotine dependence; Z88.8 Allergy status to other drugs, medicaments and biological substances; Z79.82 Long term (current) use of aspirin; Z79.899 Other long term (current) drug therapy

== ENCOUNTER → 2022-01-14 | Outpatient (REF) | payer OTHER | LOC: M PLALAB 08:01 | PROVIDERS: ATTEND Specialist | DX: Z12.4 Encounter for screening for malignant neoplasm of cervix (principal); Z53.9 Procedure and treatment not carried out, unspecified reason ==

== ENCOUNTER → 2022-01-27 | Outpatient (CLI) | payer OTHER | LOC: M LABSMTC 11:51 | PROVIDERS: ATTEND Anesthesiology | DX: Z01.812 Encounter for preprocedural laboratory examination (principal); Z20.822 Contact with and (suspected) exposure to COVID-19 ==

== ENCOUNTER → 2022-02-01 | Outpatient (CLI) | payer OTHER ==
[~2022-02-01] MED LIST changes: +BUPIVACAINE HCL 0.25% 30ML VIAL As Ordered ONE; +ISOVUE-M 300 61% 15ML VIAL As Ordered ONE; +LIDOCAINE 1% SDV 30ML VIAL As Ordered ONE
== END ==
LOC: M PAIN 10:00
PROVIDERS: ATTEND Anesthesiology
DX: M47.816 Spondylosis without myelopathy or radiculopathy, lumbar region (principal); M47.817 Spondylosis without myelopathy or radiculopathy, lumbosacral region; K21.9 Gastro-esophageal reflux disease without esophagitis; E55.9 Vitamin D deficiency, unspecified; Z86.59 Personal history of other mental and behavioral disorders; Z87.891 Personal history of nicotine dependence; Z88.8 Allergy status to other drugs, medicaments and biological substances; Z79.82 Long term (current) use of aspirin; Z79.891 Long term (current) use of opiate analgesic; Z79.899 Other long term (current) drug therapy
CPT/HCPCS: 64493; 64494; Q9967

== ENCOUNTER → 2022-02-19 | Outpatient (CLI) | payer OTHER ==
[~2022-02-19] MED LIST changes: -BUPIVACAINE HCL 0.25% 30ML VIAL As Ordered ONE; -ISOVUE-M 300 61% 15ML VIAL As Ordered ONE; -LIDOCAINE 1% SDV 30ML VIAL As Ordered ONE
[2022-02-19 14:03] LABS: ALBUMIN 4.2 GM/DL (3.2-5.2); BILIRUBIN,TOTAL 0.6 MG/DL (0.2-1.0); CALCIUM LEVEL 9.3 MG/DL (8.5-10.1); CREATININE FOR GFR 1.02 MG/DL (0.55-1.30); FREE T4 0.85 NG/DL (0.76-1.46); POTASSIUM SERUM 4.6 MEQ/L (3.5-5.1); PTH INTACT 70.2 PG/ML (18.5-88.0); THYROID STIMULATING HORMONE 2.8 uIU/ML (0.358-3.740); TOTAL 25(OH) VITAMIN D 46.7 NG/ML (30.0-100.0); TOTAL PROTEIN 7.6 GM/DL (6.4-8.2)
== END ==
LOC: M PLALAB 10:53
PROVIDERS: ATTEND Physician Assistant Medical
DX: E78.5 Hyperlipidemia, unspecified (principal); F32.9 Major depressive disorder, single episode, unspecified; E55.9 Vitamin D deficiency, unspecified

== ENCOUNTER → 2022-02-25 | Outpatient (CLI) | payer OTHER | LOC: M PAIN 10:45 | PROVIDERS: ATTEND Nurse Practitioner Family | DX: M47.816 Spondylosis without myelopathy or radiculopathy, lumbar region (principal); M47.817 Spondylosis without myelopathy or radiculopathy, lumbosacral region; G89.29 Other chronic pain; K21.9 Gastro-esophageal reflux disease without esophagitis; E55.9 Vitamin D deficiency, unspecified; Z86.59 Personal history of other mental and behavioral disorders; Z87.891 Personal history of nicotine dependence; Z88.8 Allergy status to other drugs, medicaments and biological substances; Z79.82 Long term (current) use of aspirin; Z79.899 Other long term (current) drug therapy ==

== ENCOUNTER → 2022-03-23 | Outpatient (CLI) | payer OTHER | LOC: M PAIN 10:30 | PROVIDERS: ATTEND Nurse Practitioner Family | DX: Z79.891 Long term (current) use of opiate analgesic (principal) ==

== ENCOUNTER → 2022-07-07 | Outpatient (REF) | payer OTHER | LOC: M SFHCPLAZ 13:18 | PROVIDERS: ATTEND Physician Assistant | DX: R30.0 Dysuria (principal) ==

== ENCOUNTER 2022-09-06 13:45 | Emergency (ER) | payer OTHER ==
[~2022-09-06] VITALS: Ht 170.2 cm; Wt 81.9 kg
[2022-09-06 18:18] LABS: BASO # 0.1 10^3/uL (0.0-0.2); BASO % 0.6 % (0.0-1.0); EOS # 0.4 10^3/uL (0.0-0.5); EOS % 3.2 % (0.0-3.0); HEMATOCRIT 46.9 % (36.0-47.0); HEMOGLOBIN 14.5 g/dl (12.0-15.5); LYMPH # 2.4 10^3/uL (1.5-5.0); LYMPH % 20.3 % (24.0-44.0); MEAN CORPUSCULAR HEMOGLOBIN 28.7 pg (27.0-33.0); MEAN CORPUSCULAR HGB CONC 30.9 g/dl (32.0-36.5); MEAN CORPUSCULAR VOLUME 92.7 fl (80.0-96.0); MONO # 0.9 10^3/uL (0.0-0.8); MONO % 7.9 % (2.0-8.0); NEUTROPHILS # 7.9 10^3/uL (1.5-8.5); NEUTROPHILS % 67.1 % (36.0-66.0); PLATELET COUNT, AUTOMATED 360 10^3/uL (150-450); RED BLOOD COUNT 5.06 10^6/uL (4.00-5.40); WHITE BLOOD COUNT 11.7 10^3/uL (4.0-10.0)
[2022-09-06 18:34] LABS: ALBUMIN 3.6 GM/DL (3.2-5.2); BILIRUBIN,DIRECT 0.2 MG/DL (0.0-0.2); BILIRUBIN,TOTAL 0.4 MG/DL (0.2-1.0); CALCIUM LEVEL 9.8 MG/DL (8.8-10.2); CREATININE FOR GFR 1.25 MG/DL (0.55-1.30); GLOMERULAR FILTRATION RATE 46.5 (>45); POTASSIUM SERUM 4.5 MEQ/L (3.5-5.1); TOTAL PROTEIN 7.4 GM/DL (6.4-8.2)
[2022-09-06] MEDS ORDERED: NS 1,000 ML IV ONE (18:55)
[2022-09-06] MEDS ORDERED: KETOROLAC 30 MG/ML 1ML VIAL IV ONE (18:55)
[2022-09-06] MEDS ORDERED: METOCLOPRAMIDE INJ 10MG/2ML VIAL (J2765 PER 1) IV ONE (18:55)
[2022-09-06] MEDS ORDERED: LIDOCAINE 5% (LIDODERM) PATCH TD ONE (18:55)
[2022-09-06] MEDS ORDERED: diazePAM 10MG/2ML SYRINGE (J3360 PER 5MG) IV ONE (18:55)
[2022-09-06] MEDS ORDERED: ISOVUE-370 76% 100ML VIAL As Ordered ONE (19:03)
[2022-09-06] MEDS ORDERED: NAPR-837 PO (22:00)
[2022-09-06] MEDS ORDERED: ASPE4PAD TOP (22:00)
[2022-09-06] MEDS ORDERED: METH-1165 PO (22:00)
[2022-09-06] MEDS ORDERED: COLA100C5 PO (22:00)
[2022-09-06] MEDS ORDERED: diazePAM 5MG TABLET PO ONE (23:35)
[2022-09-06 23:57] VITALS: BP 128/82
[2022-09-09] MEDS ORDERED: LEVO1TAB38 PO (07:48)
== END 2022-09-06 23:58 | disposition home or self-care (01) ==
LOC: M ED 13:45
DX: S22.32XA Fracture of one rib, left side, initial encounter for closed fracture (principal); N13.2 Hydronephrosis with renal and ureteral calculous obstruction; R19.09 Other intra-abdominal and pelvic swelling, mass and lump; I10 Essential (primary) hypertension; Z86.73 Personal history of transient ischemic attack (TIA), and cerebral infarction without residual deficits; Z79.899 Other long term (current) drug therapy; Z88.8 Allergy status to other drugs, medicaments and biological substances; Z91.89 Other specified personal risk factors, not elsewhere classified
CPT/HCPCS: 74177; 76830; 76856; 80048; 80076; 81000; 81015; 83690; 85025; 87088; 87186; 96361; 96374; 96375; 99283; J1885; J2765; J3360; Q9967

== ENCOUNTER → 2022-09-07 | Outpatient (CLI) | payer OTHER ==
[~2022-09-07] MED LIST changes: +ASPE4PAD TOP; +COLA100C5 PO; +METH-1165 PO; +NAPR-837 PO
[2022-09-07 15:34] LABS: INR 0.96
[2022-09-07 15:35] LABS: PARTIAL THROMBOPLASTIN TIME 27.7 SECONDS (24.8-34.2)
== END ==
LOC: M PLALAB 14:09
PROVIDERS: ATTEND Physician Assistant
DX: N94.89 Other specified conditions associated with female genital organs and menstrual cycle (principal)

== ENCOUNTER → 2022-09-24 | Outpatient (CLI) | payer OTHER ==
[~2022-09-24] MED LIST changes: +BAYE81TA10 PO; +CARV6.25 PO; +FAMO20TA PO; +LEVO1TAB38 PO; +LORA-674 PO; +LUBI8CAP PO; +PAME10CA PO; +SIME180C25 PO; +SIME80CH5 PO; +VITA500045 PO
[2022-09-24 13:30] LABS: BASO # 0.1 10^3/uL (0.0-0.2); BASO % 0.7 % (0.0-1.0); EOS # 0.4 10^3/uL (0.0-0.5); EOS % 5.2 % (0.0-3.0); HEMATOCRIT 43.2 % (36.0-47.0); HEMOGLOBIN 12.8 g/dl (12.0-15.5); LYMPH % 23.7 % (24.0-44.0); MEAN CORPUSCULAR HEMOGLOBIN 28.4 pg (27.0-33.0); MEAN CORPUSCULAR HGB CONC 29.6 g/dl (32.0-36.5); MEAN CORPUSCULAR VOLUME 95.8 fl (80.0-96.0); MONO # 0.7 10^3/uL (0.0-0.8); MONO % 8.5 % (2.0-8.0); NEUTROPHILS # 5.2 10^3/uL (1.5-8.5); NEUTROPHILS % 61.1 % (36.0-66.0); PLATELET COUNT, AUTOMATED 347 10^3/uL (150-450); RED BLOOD COUNT 4.51 10^6/uL (4.00-5.40); WHITE BLOOD COUNT 8.5 10^3/uL (4.0-10.0)
[2022-09-24 13:58] LABS: APPEARANCE, URINE MANUAL CLOUDY (CLEAR); COLOR, URINE MANUAL YELLOW (YELLOW)
[2022-09-24 13:59] LABS: BILIRUBIN, URINE MANUAL NEGATIVE (NEGATIVE); BLOOD URINE MANUAL TRACE (NEGATIVE); GLUCOSE, URINE (UA) MANUAL NEGATIVE (NEGATIVE); KETONE, URINE MANUAL NEGATIVE (NEGATIVE); LEUKOCYTE ESTERASE, URINE MAN POSITIVE (NEGATIVE); NITRITE, URINE MANUAL NEGATIVE (NEGATIVE); PROTEIN, URINE MANUAL 2+ mg/dL (NEGATIVE); UROBILINOGEN, URINE MANUAL NORMAL (NORMAL)
[2022-09-24 14:10] LABS: INR 1.07; PROTHROMBIN TIME 14.1 SECONDS (12.5-14.5)
[2022-09-24 14:11] LABS: PARTIAL THROMBOPLASTIN TIME 30.3 SECONDS (24.8-34.2)
[2022-09-24 14:20] LABS: ALBUMIN 3.7 GM/DL (3.2-5.2); BILIRUBIN,TOTAL 0.5 MG/DL (0.2-1.0); CALCIUM LEVEL 9.6 MG/DL (8.8-10.2); CREATININE FOR GFR 1.13 MG/DL (0.55-1.30); GLOMERULAR FILTRATION RATE 52.3 (>45)
[2022-09-24 14:34] LABS: BACTERIA, URINE SMALL AMOUNT; HYALINE CAST, URINE NONE SEEN /lpf (0-1); MUCUS, URINE MOD AMOUNT (NEGATIVE); SQUAMOUS EPITHELIAL CELL URINE MOD AMOUNT /hpf (SMALL AMT)
[2022-09-24 14:35] LABS: AMORPHOUS SEDIMENT, URINE MOD AMOUNT (NEGATIVE)
== END ==
LOC: M PLALAB 11:20
PROVIDERS: ATTEND Family Medicine
DX: R19.00 Intra-abdominal and pelvic swelling, mass and lump, unspecified site (principal); M17.12 Unilateral primary osteoarthritis, left knee

== ENCOUNTER → 2022-09-27 | Outpatient (CLI) | payer OTHER | LOC: M LABSMTC 11:54 | PROVIDERS: ATTEND Anesthesiology | DX: Z01.812 Encounter for preprocedural laboratory examination (principal); Z20.822 Contact with and (suspected) exposure to COVID-19 ==

== ENCOUNTER → 2022-09-28 | Outpatient (CLI) | payer OTHER | LOC: M PLALAB 12:04 | PROVIDERS: ATTEND Physician Assistant | DX: N13.30 Unspecified hydronephrosis (principal); R91.8 Other nonspecific abnormal finding of lung field; R93.7 Abnormal findings on diagnostic imaging of other parts of musculoskeletal system ==

== ENCOUNTER 2022-09-29 09:45 | Day surgery (SDC) | payer OTHER ==
[~2022-09-29] VITALS: Ht 167.6 cm; Wt 82.6 kg
[~2022-09-29 09:45] MED LIST changes: +ceFAZolin SOD 2 GM in IV 1 EA IV ONE
[2022-09-29] MEDS ORDERED: LR 1,000 ML IV SCH (10:30)
[2022-09-29] MEDS ORDERED: LIDOCAINE 2% 100MG/5ML SDV (FOR ANES.) As Ordered ONE (10:57)
[2022-09-29] MEDS ORDERED: propofoL 200 MG/20 ML VIAL As Ordered ONE ×2 (10:57→12:21)
[2022-09-29] MEDS ORDERED: MIDAZOLAM INJ 2MG/2ML VIAL (J2250 PER 1MG) As Ordered ONE (10:57)
[2022-09-29] MEDS ORDERED: fentaNYL 100 MCG/2 ML INJECTION As Ordered ONE (10:57)
[2022-09-29] MEDS ORDERED: LIDOCAINE 2% 5ML JELLY UROJET As Ordered ONE (11:41)
[2022-09-29] MEDS ORDERED: ISOVUE-300 61% 50ML VIAL As Ordered ONE (11:47)
[2022-09-29] MEDS ORDERED: ACETAMINOPHEN 1000MG 100ML IV BAG As Ordered ONE (12:15)
[2022-09-29 16:30] VITALS: BP 125/88
== END 2022-09-29 17:14 | disposition home or self-care (01) ==
LOC: M SDC 09:45
PROVIDERS: ATTEND Urology
DX: N20.0 Calculus of kidney (principal); N13.30 Unspecified hydronephrosis; R19.09 Other intra-abdominal and pelvic swelling, mass and lump; I10 Essential (primary) hypertension; F31.9 Bipolar disorder, unspecified; E66.9 Obesity, unspecified; R73.01 Impaired fasting glucose; K21.9 Gastro-esophageal reflux disease without esophagitis; K58.2 Mixed irritable bowel syndrome; E55.9 Vitamin D deficiency, unspecified; Z79.899 Other long term (current) drug therapy; Z88.8 Allergy status to other drugs, medicaments and biological substances
CPT/HCPCS: 52332; 74420; C1769; C2625; J0131; J0690; J2250; J3010

== ENCOUNTER → 2022-10-24 | Outpatient (CLI) | payer OTHER ==
[~2022-10-24] MED LIST changes: -ceFAZolin SOD 2 GM in IV 1 EA IV ONE
== END ==
LOC: M LABSMTC 11:55
PROVIDERS: ATTEND Nurse Practitioner
DX: Z01.812 Encounter for preprocedural laboratory examination (principal); Z11.52 Encounter for screening for COVID-19

== ENCOUNTER → 2022-10-25 | Outpatient (REF) | payer OTHER | LOC: M SFHCPLAZ 10:20 | PROVIDERS: ATTEND Family Medicine | DX: L03.012 Cellulitis of left finger (principal) ==

== ENCOUNTER → 2022-10-26 | Outpatient (CLI) | payer OTHER ==
[2022-10-26 17:26] LABS: APPEARANCE, URINE MANUAL CLOUDY (CLEAR); COLOR, URINE MANUAL AMBER (YELLOW)
[2022-10-26 17:30] LABS: BASO # 0.1 10^3/uL (0.0-0.2); BASO % 0.8 % (0.0-1.0); EOS # 0.6 10^3/uL (0.0-0.5); EOS % 5.9 % (0.0-3.0); HEMATOCRIT 41.2 % (36.0-47.0); LYMPH # 1.5 10^3/uL (1.5-5.0); MEAN CORPUSCULAR HEMOGLOBIN 27.4 pg (27.0-33.0); MEAN CORPUSCULAR HGB CONC 31.6 g/dl (32.0-36.5); MEAN CORPUSCULAR VOLUME 86.9 fl (80.0-96.0); NEUTROPHILS # 7.4 10^3/uL (1.5-8.5); NEUTROPHILS % 69.8 % (36.0-66.0); PLATELET COUNT, AUTOMATED 378 10^3/uL (150-450); RED BLOOD COUNT 4.74 10^6/uL (4.00-5.40); WHITE BLOOD COUNT 10.6 10^3/uL (4.0-10.0)
[2022-10-26 17:36] LABS: GLUCOSE, URINE (UA) MANUAL NEGATIVE (NEGATIVE); KETONE, URINE MANUAL NEGATIVE (NEGATIVE); PROTEIN, URINE MANUAL 3+ mg/dL (NEGATIVE)
[2022-10-26 17:37] LABS: BILIRUBIN, URINE MANUAL OBSCURED (NEGATIVE); BLOOD URINE MANUAL POSITIVE (NEGATIVE); LEUKOCYTE ESTERASE, URINE MAN POSITIVE (NEGATIVE); NITRITE, URINE MANUAL NEGATIVE (NEGATIVE); UROBILINOGEN, URINE MANUAL NORMAL (NORMAL)
[2022-10-26 17:45] LABS: INR 1.05; PROTHROMBIN TIME 13.9 SECONDS (12.5-14.5)
[2022-10-26 17:49] LABS: BACTERIA, URINE SMALL AMOUNT; HYALINE CAST, URINE NONE SEEN /lpf (0-1); RBC, URINE 20-30 /hpf (0-3); SQUAMOUS EPITHELIAL CELL URINE SMALL AMOUNT /hpf (SMALL AMT)
[2022-10-26 18:11] LABS: ALBUMIN 3.7 G/DL (3.2-5.2); ALKALINE PHOSPHATASE 145 U/L (46-116); ALT/SGPT 13 U/L (7.0-40); AST/SGOT 22 U/L (<34); BILIRUBIN,TOTAL 0.6 MG/DL (0.3-1.2); BLOOD UREA NITROGEN 20 MG/DL (9-23); CALCIUM LEVEL 10.6 MG/DL (8.3-10.6); CARBON DIOXIDE LEVEL 22 MMOL/L (20-31); CHLORIDE LEVEL 105 MMOL/L (98-107); CREATININE FOR GFR 0.95 MG/DL (0.55-1.30); GLOMERULAR FILTRATION RATE > 60.0 (>45); GLUCOSE, FASTING 108 MG/DL (74-106); POTASSIUM SERUM 3.9 MMOL/L (3.5-5.1); SODIUM LEVEL 138 MMOL/L (136-145); TOTAL PROTEIN 7.6 G/DL (5.7-8.2)
== END ==
LOC: M RAD 16:19
PROVIDERS: ATTEND Family Medicine
DX: Z01.818 Encounter for other preprocedural examination (principal); I10 Essential (primary) hypertension; J84.10 Pulmonary fibrosis, unspecified

== ENCOUNTER → 2022-10-29 | Outpatient (CLI) | payer OTHER ==
[~2022-10-29] MED LIST changes: +ISOVUE-370 76% 100ML VIAL As Ordered ONE; +OXYC10TA3 PO
== END ==
LOC: M RAD 11:21
PROVIDERS: ATTEND Physician Assistant Medical
DX: M89.9 Disorder of bone, unspecified (principal); J84.10 Pulmonary fibrosis, unspecified; J98.11 Atelectasis; D17.4 Benign lipomatous neoplasm of intrathoracic organs; N13.30 Unspecified hydronephrosis; C79.51 Secondary malignant neoplasm of bone

== ENCOUNTER → 2022-11-01 | Outpatient (CLI) | payer OTHER ==
[~2022-11-01] MED LIST changes: +DULC10SU2 PR; -ISOVUE-370 76% 100ML VIAL As Ordered ONE; +ONDA4TAB6 PO; +OXYC-403 PO; +OXYC10TA12 PO; +SENN-80 PO
== END ==
LOC: M ONCR 13:07
PROVIDERS: ATTEND General Practice
DX: C56.2 Malignant neoplasm of left ovary (principal); C79.51 Secondary malignant neoplasm of bone; F31.9 Bipolar disorder, unspecified; R89.8 Other abnormal findings in specimens from other organs, systems and tissues; I10 Essential (primary) hypertension; K21.9 Gastro-esophageal reflux disease without esophagitis; Z63.4 Disappearance and death of family member; Z79.1 Long term (current) use of non-steroidal anti-inflammatories (NSAID); Z79.82 Long term (current) use of aspirin; Z79.83 Long term (current) use of bisphosphonates; Z79.891 Long term (current) use of opiate analgesic; Z79.899 Other long term (current) drug therapy; Z80.49 Family history of malignant neoplasm of other genital organs; Z87.891 Personal history of nicotine dependence; Z88.8 Allergy status to other drugs, medicaments and biological substances; Z91.048 Other nonmedicinal substance allergy status
CPT/HCPCS: 88173; G0463

== ENCOUNTER → 2022-11-02 | Outpatient (CLI) | payer OTHER ==
[~2022-11-02] VITALS: Ht 167.6 cm; Wt 80.6 kg
[2022-11-02 08:00] VITALS: BP 143/94
== END ==
LOC: M PAL 07:49
PROVIDERS: ATTEND Nurse Practitioner Adult Health
DX: C55 Malignant neoplasm of uterus, part unspecified (principal); C79.49 Secondary malignant neoplasm of other parts of nervous system; G89.3 Neoplasm related pain (acute) (chronic); F31.9 Bipolar disorder, unspecified; K59.09 Other constipation; R10.9 Unspecified abdominal pain; I10 Essential (primary) hypertension; K21.9 Gastro-esophageal reflux disease without esophagitis; M54.6 Pain in thoracic spine; M79.604 Pain in right leg; R06.02 Shortness of breath; R53.83 Other fatigue; R11.0 Nausea; M79.605 Pain in left leg; Z51.5 Encounter for palliative care; Z79.891 Long term (current) use of opiate analgesic; Z79.899 Other long term (current) drug therapy; Z79.82 Long term (current) use of aspirin; Z88.8 Allergy status to other drugs, medicaments and biological substances; Z80.49 Family history of malignant neoplasm of other genital organs; Z87.891 Personal history of nicotine dependence

== ENCOUNTER → 2022-11-10 | Outpatient (CLI) | payer OTHER ==
[~2022-11-10] MED LIST changes: +LIDOCAINE 1% MDV 20ML VIAL As Ordered ONE; +MIDAZOLAM INJ 2MG/2ML VIAL (J2250 PER 1MG) As Ordered ONE; +NS 1,000 ML IV SCH; +ceFAZolin 2 GM/D5W 50 ML IV BAG As Ordered ONE; +ceFAZolin SOD 2 GM in IV 1 EA IV ONE; +diphenhydrAMINE 50MG/ML VIAL As Ordered ONE; +fentaNYL 100 MCG/2 ML INJECTION As Ordered ONE
[2022-11-10 17:45] VITALS: BP 121/74
== END ==
LOC: M IRPRO 12:15
PROVIDERS: ATTEND Specialist
DX: C56.9 Malignant neoplasm of unspecified ovary (principal)
CPT/HCPCS: 36561; 99152; 99153; C1769; C1788; C1894; J0690; J1200; J1642; J1644; J2250; J3010

== ENCOUNTER → 2022-11-17 | Outpatient (CLI) | payer OTHER ==
[~2022-11-17] MED LIST changes: -MIDAZOLAM INJ 2MG/2ML VIAL (J2250 PER 1MG) As Ordered ONE; -NS 1,000 ML IV SCH; -ceFAZolin 2 GM/D5W 50 ML IV BAG As Ordered ONE; -ceFAZolin SOD 2 GM in IV 1 EA IV ONE; -diphenhydrAMINE 50MG/ML VIAL As Ordered ONE; -fentaNYL 100 MCG/2 ML INJECTION As Ordered ONE
[2022-11-17 10:30] VITALS: BP 106/74
== END ==
LOC: M IRPRO 10:10
PROVIDERS: ATTEND General Practice
DX: C56.2 Malignant neoplasm of left ovary (principal); C79.51 Secondary malignant neoplasm of bone; Z53.8 Procedure and treatment not carried out for other reasons

== ENCOUNTER 2022-11-19 08:23 | Outpatient (RCR) | payer OTHER ==
[2022-11-03] MEDS: ONDANSETRON 4MG ORAL DISINTEGRATING TAB PO ONE (15:21)
[2022-11-18 09:56] LABS: HEMATOCRIT 36.5 % (36.0-47.0); HEMOGLOBIN 10.9 g/dl (12.0-15.5); MEAN CORPUSCULAR HEMOGLOBIN 27.1 pg (27.0-33.0); MEAN CORPUSCULAR HGB CONC 29.9 g/dl (32.0-36.5); MEAN CORPUSCULAR VOLUME 90.8 fl (80.0-96.0); PLATELET COUNT, AUTOMATED 304 10^3/uL (150-450); RED BLOOD COUNT 4.02 10^6/uL (4.00-5.40); WHITE BLOOD COUNT 11.2 10^3/uL (4.0-10.0)
[2022-11-18 10:18] LABS: CALCIUM LEVEL 11.8 MG/DL (8.3-10.6); CREATININE FOR GFR 1.28 MG/DL (0.55-1.30); GLOMERULAR FILTRATION RATE 45.3 (>45); POTASSIUM SERUM 3.8 MMOL/L (3.5-5.1)
[~2022-11-19 08:23] MED LIST changes: -LIDOCAINE 1% MDV 20ML VIAL As Ordered ONE
[2022-11-25] MEDS ORDERED: LIDO3CRE14 TOP (16:23)
[2022-11-25] MEDS ORDERED: HYDR0.5C8 TOP (16:31)
== END 2022-11-20 ==
LOC: M ONCR 08:23
PROVIDERS: ATTEND General Practice
DX: C56.2 Malignant neoplasm of left ovary (principal); C79.51 Secondary malignant neoplasm of bone

== ENCOUNTER → 2022-11-23 | Outpatient (CLI) | payer OTHER ==
[~2022-11-23] MED LIST changes: +HYDR0.5C8 TOP; +LIDO3CRE14 TOP
== END ==
LOC: M PAL 07:55
PROVIDERS: ATTEND Nurse Practitioner Family
DX: C55 Malignant neoplasm of uterus, part unspecified (principal); G89.3 Neoplasm related pain (acute) (chronic); M50.30 Other cervical disc degeneration, unspecified cervical region; M25.519 Pain in unspecified shoulder; K21.9 Gastro-esophageal reflux disease without esophagitis; F31.9 Bipolar disorder, unspecified; K59.00 Constipation, unspecified; Z51.5 Encounter for palliative care; Z79.891 Long term (current) use of opiate analgesic; Z79.899 Other long term (current) drug therapy

== ENCOUNTER 2022-11-30 10:36 | Inpatient (IN) | payer OTHER ==
[2022-11-30] VITALS (9 sets, daily range): BP systolic 107–141; BP diastolic 70–92; O2SAT 90–96
[~2022-11-30] VITALS: Ht 170.2 cm; Wt 77.2 kg
[2022-11-30] MEDS ORDERED: NS 1,000 ML IV ONE (13:40)
[2022-11-30] MEDS ORDERED: oxyCODONE 5MG TAB PO ONE (13:45)
[2022-11-30 15:38] LABS: BASO # 0.1 10^3/uL (0.0-0.2); BASO % 0.7 % (0.0-1.0); EOS # 0.1 10^3/uL (0.0-0.5); EOS % 0.8 % (0.0-3.0); HEMATOCRIT 36.9 % (36.0-47.0); HEMOGLOBIN 11.1 g/dl (12.0-15.5); LYMPH # 0.7 10^3/uL (1.5-5.0); MEAN CORPUSCULAR HEMOGLOBIN 27.8 pg (27.0-33.0); MEAN CORPUSCULAR HGB CONC 30.1 g/dl (32.0-36.5); MEAN CORPUSCULAR VOLUME 92.5 fl (80.0-96.0); MONO # 0.6 10^3/uL (0.0-0.8); MONO % 7.7 % (2.0-8.0); NEUTROPHILS # 6.2 10^3/uL (1.5-8.5); NEUTROPHILS % 80.2 % (36.0-66.0); PLATELET COUNT, AUTOMATED 151 10^3/uL (150-450); RED BLOOD COUNT 3.99 10^6/uL (4.00-5.40); WHITE BLOOD COUNT 7.7 10^3/uL (4.0-10.0)
[2022-11-30] MEDS ORDERED: ISOVUE-370 76% 100ML VIAL As Ordered ONE (16:06)
[2022-11-30 16:09] LABS: INR 1.1; PARTIAL THROMBOPLASTIN TIME 27.6 SECONDS (24.8-34.2); PROTHROMBIN TIME 14.4 SECONDS (12.5-14.5)
[2022-11-30 16:24] LABS: CK-MB VALUE MASS < 1.0 NG/ML (<3.6)
[2022-11-30] MEDS ORDERED: ACETAMINOPHEN TAB 650MG DOSE (2X325MG) PO PRN (16:25)
[2022-11-30 16:27] LABS: ALBUMIN 3.2 G/DL (3.2-5.2); ALKALINE PHOSPHATASE 148 U/L (46-116); ALT/SGPT 11 U/L (7.0-40); AST/SGOT 41 U/L (<34); BILIRUBIN,DIRECT 0.5 MG/DL (<0.4); BILIRUBIN,TOTAL 1.1 MG/DL (0.3-1.2); CPK CREATINE PHOSPHOKINASE 38 U/L (34-145); LIPASE 18 U/L (12-53); MB/CK RELATIVE INDEX 2.63 (< OR =4); TOTAL PROTEIN 6.6 G/DL (5.7-8.2)
[2022-11-30 16:29] LABS: RSV AMPLIFICATION NEGATIVE (NEGATIVE)
[2022-11-30] MEDS ORDERED: PIPERACILLIN/TAZOBACTAM SOD 4.5 GM in D5W MINI-BAG PLUS 50 ML IV ONE (16:40)
[2022-11-30] MEDS ORDERED: MIRALAX *UNIT DOSE* 17GM PACKET PO PRN (18:40)
[2022-11-30 18:41] LABS: IRON (FE) 29 UG/DL (50-170); PERCENT SATURATION 12.7 % (13.2-45.0); TOTAL IRON BINDING CAPACITY 229 UG/DL (250-425)
[2022-11-30 18:44] LABS: FERRITIN 387.5 NG/ML (7.3-270.7)
[2022-11-30] MEDS: NS 1,000 ML IV SCH (18:45)
[2022-11-30] MEDS ORDERED: ASPI81CH33 PO (19:05)
[2022-11-30] MEDS ORDERED: SIMV20TA22 PO (19:06)
[2022-11-30] MEDS ORDERED: DULO1CAP4 PO (19:07)
[2022-11-30] MEDS ORDERED: NALO12.5 PO (19:08)
[2022-11-30] MEDS ORDERED: HOME MED LIST COMPLETE! XX SCH (19:10)
[2022-11-30] MEDS ORDERED: DICYCLOMINE 10 MG CAP PO PRN (19:25)
[2022-11-30] MEDS ORDERED: SIMETHICONE 80MG CHEW TAB PO PRN (19:25)
[2022-11-30] MEDS: cefTRIAXone SOD 1 GM in D5W MINI-BAG PLUS 50 ML IV SCH (20:38)
[2022-11-30] MEDS: NORTRIPTYLINE 10 MG CAP PO SCH (20:42)
[2022-11-30] MEDS: SENNA 8.6 MG TAB (SENOKOT) PO SCH (20:44)
[2022-11-30] MEDS: SIMVASTATIN 20 MG TAB PO SCH (20:45)
[2022-11-30] MEDS: TOPIRAMATE (TopAMAX) 100 MG TAB PO SCH (20:46)
[2022-11-30] MEDS: oxyCODONE 5MG TAB PO PRN ×3 (20:50→21:59)
[2022-11-30] MEDS ORDERED: CARVedilol 6.25 MG TAB PO SCH (21:00)
[2022-11-30] MEDS: ONDANSETRON 4MG 2ML VIAL IV PRN (23:33)
[2022-12-01] VITALS (23 sets, daily range): BP systolic 102–146; BP diastolic 64–90; O2SAT 90–99
[2022-12-01] MEDS: NS 1,000 ML IV SCH ×3 (02:46→21:26)
[2022-12-01 05:57] LABS: HEMATOCRIT 29.8 % (36.0-47.0); MEAN CORPUSCULAR HGB CONC 30.2 g/dl (32.0-36.5); MEAN CORPUSCULAR VOLUME 92.5 fl (80.0-96.0); PLATELET COUNT, AUTOMATED 126 10^3/uL (150-450); RED BLOOD COUNT 3.22 10^6/uL (4.00-5.40); WHITE BLOOD COUNT 6.3 10^3/uL (4.0-10.0)
[2022-12-01 06:41] LABS: ALBUMIN 2.6 G/DL (3.2-5.2); ALKALINE PHOSPHATASE 115 U/L (46-116); ALT/SGPT < 9 U/L (7.0-40); AST/SGOT 35 U/L (<34); BILIRUBIN,TOTAL 0.5 MG/DL (0.3-1.2); BLOOD UREA NITROGEN 31 MG/DL (9-23); CALCIUM LEVEL 11.2 MG/DL (8.3-10.6); CARBON DIOXIDE LEVEL 24 MMOL/L (20-31); CHLORIDE LEVEL 106 MMOL/L (98-107); GLOMERULAR FILTRATION RATE 48.8 (>45); GLUCOSE, FASTING 105 MG/DL (74-106); POTASSIUM SERUM 4.2 MMOL/L (3.5-5.1); SODIUM LEVEL 137 MMOL/L (136-145); TOTAL PROTEIN 5.6 G/DL (5.7-8.2)
[2022-12-01] MEDS ORDERED: LEVALBUTEROL 1.25MG 0.5ML CONCENTRATE NEB NEB PRN (07:50)
[2022-12-01] MEDS: OMEPRAZOLE 20MG CAP PO SCH (08:15)
[2022-12-01] MEDS: DULoxetine 20MG CAP (CYMBALTA) PO SCH (08:16)
[2022-12-01] MEDS: SENNA 8.6 MG TAB (SENOKOT) PO SCH ×2 (08:16→20:28)
[2022-12-01] MEDS: TOPIRAMATE (TopAMAX) 25 MG TAB PO SCH (08:16)
[2022-12-01] MEDS: NORTRIPTYLINE 10 MG CAP PO SCH ×3 (08:16→20:25)
[2022-12-01] MEDS: CALCITONIN SALMON (MIACALCIN) 400INTERNATIONAL UNITS/2ML VIAL SQ SCH ×2 (13:26→21:25)
[2022-12-01] MEDS: ENOXAPARIN 80MG/0.8ML SYRINGE (J1650 PER 10MG) SC SCH (13:28)
[2022-12-01] MEDS: cefTRIAXone SOD 1 GM in D5W MINI-BAG PLUS 50 ML IV SCH (20:25)
[2022-12-01] MEDS: oxyCODONE 5MG TAB PO PRN (20:27)
[2022-12-01] MEDS: TOPIRAMATE (TopAMAX) 100 MG TAB PO SCH (20:28)
[2022-12-01] MEDS: SIMVASTATIN 20 MG TAB PO SCH (20:28)
[2022-12-01] MEDS: ONDANSETRON 4MG 2ML VIAL IV PRN (20:37)
[2022-12-01 21:55] LABS: ALBUMIN 2.9 G/DL (3.2-5.2); ALKALINE PHOSPHATASE 120 U/L (46-116); ALT/SGPT 9 U/L (7.0-40); AST/SGOT 38 U/L (<34); BILIRUBIN,TOTAL 0.5 MG/DL (0.3-1.2); BLOOD UREA NITROGEN 19 MG/DL (9-23); CARBON DIOXIDE LEVEL 21 MMOL/L (20-31); CHLORIDE LEVEL 106 MMOL/L (98-107); CREATININE FOR GFR 0.95 MG/DL (0.55-1.30); GLOMERULAR FILTRATION RATE > 60.0 (>45); GLUCOSE, FASTING 111 MG/DL (74-106); SODIUM LEVEL 136 MMOL/L (136-145); TOTAL PROTEIN 6.1 G/DL (5.7-8.2)
[2022-12-02] VITALS (27 sets, daily range): BP systolic 109–152; BP diastolic 57–94; O2SAT 81–99
[2022-12-02] MEDS: ENOXAPARIN 80MG/0.8ML SYRINGE (J1650 PER 10MG) SC SCH ×2 (00:46→12:00)
[2022-12-02] MEDS: NS 1,000 ML IV SCH ×4 (07:40→22:14)
[2022-12-02] MEDS: SENNA 8.6 MG TAB (SENOKOT) PO SCH ×2 (09:00→21:00)
[2022-12-02 09:33] LABS: HEMATOCRIT 30.9 % (36.0-47.0); HEMOGLOBIN 9.4 g/dl (12.0-15.5); MEAN CORPUSCULAR HEMOGLOBIN 28.5 pg (27.0-33.0); MEAN CORPUSCULAR HGB CONC 30.4 g/dl (32.0-36.5); MEAN CORPUSCULAR VOLUME 93.6 fl (80.0-96.0); PLATELET COUNT, AUTOMATED 133 10^3/uL (150-450); WHITE BLOOD COUNT 4.9 10^3/uL (4.0-10.0)
[2022-12-02] MEDS: OMEPRAZOLE 20MG CAP PO SCH (09:55)
[2022-12-02] MEDS: NORTRIPTYLINE 10 MG CAP PO SCH ×3 (09:55→21:00)
[2022-12-02] MEDS: TOPIRAMATE (TopAMAX) 25 MG TAB PO SCH (09:55)
[2022-12-02] MEDS: DULoxetine 20MG CAP (CYMBALTA) PO SCH (09:56)
[2022-12-02 09:57] LABS: ALBUMIN 2.6 G/DL (3.2-5.2); ALKALINE PHOSPHATASE 120 U/L (46-116); ALT/SGPT 10 U/L (7.0-40); AST/SGOT 33 U/L (<34); BILIRUBIN,TOTAL 0.4 MG/DL (0.3-1.2); BLOOD UREA NITROGEN 20 MG/DL (9-23); CALCIUM LEVEL 9.5 MG/DL (8.3-10.6); CARBON DIOXIDE LEVEL 22 MMOL/L (20-31); CHLORIDE LEVEL 108 MMOL/L (98-107); CREATININE FOR GFR 0.91 MG/DL (0.55-1.30); GLOMERULAR FILTRATION RATE > 60.0 (>45); GLUCOSE, FASTING 88 MG/DL (74-106); POTASSIUM SERUM 3.9 MMOL/L (3.5-5.1); SODIUM LEVEL 139 MMOL/L (136-145); TOTAL PROTEIN 5.7 G/DL (5.7-8.2)
[2022-12-02] MEDS: CALCITONIN SALMON (MIACALCIN) 400INTERNATIONAL UNITS/2ML VIAL SQ SCH (09:57)
[2022-12-02] MEDS ORDERED: LORazepam 2 MG/ML VIAL IV STA (11:04)
[2022-12-02] MEDS ORDERED: PROHANCE 279.3MG/ML 15ML VIAL As Ordered ONE (13:05)
[2022-12-02] MEDS: LevoFLOXacin 750 MG TABLET PO SCH (16:30)
[2022-12-02] MEDS: SIMVASTATIN 20 MG TAB PO SCH ×2 (21:00→21:20)
[2022-12-02] MEDS: TOPIRAMATE (TopAMAX) 100 MG TAB PO SCH ×2 (21:00→21:20)
[2022-12-02] MEDS: oxyCODONE 5MG TAB PO PRN (21:21)
[2022-12-03 00:13] VITALS: BP 116/68
[2022-12-03] MEDS: ENOXAPARIN 80MG/0.8ML SYRINGE (J1650 PER 10MG) SC SCH ×2 (00:14→15:09)
[2022-12-03 05:06] VITALS: BP 113/77
[2022-12-03] MEDS: LevoFLOXacin 750 MG TABLET PO SCH (05:21)
[2022-12-03 05:43] LABS: HEMOGLOBIN 8.6 g/dl (12.0-15.5); MEAN CORPUSCULAR HEMOGLOBIN 28.6 pg (27.0-33.0); MEAN CORPUSCULAR HGB CONC 30.7 g/dl (32.0-36.5); PLATELET COUNT, AUTOMATED 127 10^3/uL (150-450); RED BLOOD COUNT 3.01 10^6/uL (4.00-5.40); WHITE BLOOD COUNT 3.9 10^3/uL (4.0-10.0)
[2022-12-03 06:13] LABS: ALBUMIN 2.4 G/DL (3.2-5.2); ALKALINE PHOSPHATASE 109 U/L (46-116); ALT/SGPT < 9 U/L (7.0-40); AST/SGOT 31 U/L (<34); BILIRUBIN,TOTAL 0.4 MG/DL (0.3-1.2); BLOOD UREA NITROGEN 15 MG/DL (9-23); CALCIUM LEVEL 9.3 MG/DL (8.3-10.6); CARBON DIOXIDE LEVEL 21 MMOL/L (20-31); CHLORIDE LEVEL 109 MMOL/L (98-107); CREATININE FOR GFR 0.74 MG/DL (0.55-1.30); GLOMERULAR FILTRATION RATE > 60.0 (>45); GLUCOSE, FASTING 79 MG/DL (74-106); POTASSIUM SERUM 3.8 MMOL/L (3.5-5.1); SODIUM LEVEL 140 MMOL/L (136-145); TOTAL PROTEIN 5.2 G/DL (5.7-8.2)
[2022-12-03 07:38] VITALS: BP 146/90
[2022-12-03 08:00] VITALS: BP 146/90
[2022-12-03] MEDS: TOPIRAMATE (TopAMAX) 25 MG TAB PO SCH (08:35)
[2022-12-03] MEDS: DULoxetine 20MG CAP (CYMBALTA) PO SCH (08:37)
[2022-12-03] MEDS: SENNA 8.6 MG TAB (SENOKOT) PO SCH ×2 (08:38→21:00)
[2022-12-03] MEDS: ONDANSETRON 4MG 2ML VIAL IV PRN (08:41)
[2022-12-03] MEDS: NORTRIPTYLINE 10 MG CAP PO SCH ×3 (08:51→21:00)
[2022-12-03] MEDS: OMEPRAZOLE 20MG CAP PO SCH (08:51)
[2022-12-03] MEDS ORDERED: LORazepam 0.5 MG TAB PO PRN (09:05)
[2022-12-03] MEDS: LORazepam 2 MG/ML VIAL IV PRN (10:07)
[2022-12-03] MEDS: NS 1,000 ML IV SCH (11:19)
[2022-12-03 12:00] VITALS: BP 145/91
[2022-12-03 20:00] VITALS: BP_SYST 141; BP_SYST 143; BP_DIAS 87
[2022-12-03] MEDS: SIMVASTATIN 20 MG TAB PO SCH (21:00)
[2022-12-03] MEDS: TOPIRAMATE (TopAMAX) 100 MG TAB PO SCH (21:00)
[2022-12-04] VITALS (7 sets, daily range): BP systolic 135–149; BP diastolic 79–92
[2022-12-04] MEDS: NS 1,000 ML IV SCH (00:15)
[2022-12-04] MEDS: ENOXAPARIN 80MG/0.8ML SYRINGE (J1650 PER 10MG) SC SCH ×3 (00:15→23:41)
[2022-12-04] MEDS: oxyCODONE 5MG TAB PO PRN (00:16)
[2022-12-04 04:57] LABS: HEMATOCRIT 28.9 % (36.0-47.0); HEMOGLOBIN 8.7 g/dl (12.0-15.5); MEAN CORPUSCULAR HEMOGLOBIN 27.5 pg (27.0-33.0); MEAN CORPUSCULAR HGB CONC 30.1 g/dl (32.0-36.5); MEAN CORPUSCULAR VOLUME 91.5 fl (80.0-96.0); PLATELET COUNT, AUTOMATED 125 10^3/uL (150-450); RED BLOOD COUNT 3.16 10^6/uL (4.00-5.40); WHITE BLOOD COUNT 3.7 10^3/uL (4.0-10.0)
[2022-12-04 05:28] LABS: ALBUMIN 2.5 G/DL (3.2-5.2); ALKALINE PHOSPHATASE 102 U/L (46-116); ALT/SGPT < 9 U/L (7.0-40); AST/SGOT 31 U/L (<34); BILIRUBIN,TOTAL 0.4 MG/DL (0.3-1.2); BLOOD UREA NITROGEN 12 MG/DL (9-23); CALCIUM LEVEL 9.5 MG/DL (8.3-10.6); CARBON DIOXIDE LEVEL 19 MMOL/L (20-31); CHLORIDE LEVEL 110 MMOL/L (98-107); CREATININE FOR GFR 0.71 MG/DL (0.55-1.30); GLOMERULAR FILTRATION RATE > 60.0 (>45); GLUCOSE, FASTING 78 MG/DL (74-106); POTASSIUM SERUM 3.6 MMOL/L (3.5-5.1); SODIUM LEVEL 140 MMOL/L (136-145); TOTAL PROTEIN 5.3 G/DL (5.7-8.2)
[2022-12-04] MEDS: LevoFLOXacin 750 MG TABLET PO SCH (06:51)
[2022-12-04] MEDS: NORTRIPTYLINE 10 MG CAP PO SCH ×3 (09:00→20:44)
[2022-12-04] MEDS: DULoxetine 20MG CAP (CYMBALTA) PO SCH (09:00)
[2022-12-04] MEDS: TOPIRAMATE (TopAMAX) 25 MG TAB PO SCH (09:00)
[2022-12-04] MEDS: SENNA 8.6 MG TAB (SENOKOT) PO SCH ×3 (09:00→20:58)
[2022-12-04] MEDS: OMEPRAZOLE 20MG CAP PO SCH (09:00)
[2022-12-04] MEDS: MORPHINE 10 MG/ML 1ML VIAL IV PRN ×2 (17:37→23:41)
[2022-12-04] MEDS: ONDANSETRON 4MG 2ML VIAL IV PRN (20:43)
[2022-12-04] MEDS: SIMVASTATIN 20 MG TAB PO SCH (20:44)
[2022-12-04] MEDS: TOPIRAMATE (TopAMAX) 100 MG TAB PO SCH (20:51)
[2022-12-05] VITALS (15 sets, daily range): BP systolic 110–138; BP diastolic 62–78; O2SAT 91–96
[2022-12-05] MEDS: LevoFLOXacin 750 MG TABLET PO SCH (05:42)
[2022-12-05] MEDS: MORPHINE 10 MG/ML 1ML VIAL IV PRN ×4 (05:54→22:43)
[2022-12-05 06:11] LABS: HEMATOCRIT 27.4 % (36.0-47.0); HEMOGLOBIN 8.4 g/dl (12.0-15.5); MEAN CORPUSCULAR HEMOGLOBIN 28.2 pg (27.0-33.0); MEAN CORPUSCULAR HGB CONC 30.7 g/dl (32.0-36.5); MEAN CORPUSCULAR VOLUME 91.9 fl (80.0-96.0); PLATELET COUNT, AUTOMATED 132 10^3/uL (150-450); RED BLOOD COUNT 2.98 10^6/uL (4.00-5.40); WHITE BLOOD COUNT 3.1 10^3/uL (4.0-10.0)
[2022-12-05 06:42] LABS: ALBUMIN 2.3 G/DL (3.2-5.2); ALKALINE PHOSPHATASE 99 U/L (46-116); ALT/SGPT < 9 U/L (7.0-40); AST/SGOT 37 U/L (<34); BILIRUBIN,TOTAL 0.3 MG/DL (0.3-1.2); BLOOD UREA NITROGEN 15 MG/DL (9-23); CALCIUM LEVEL 9.2 MG/DL (8.3-10.6); CARBON DIOXIDE LEVEL 22 MMOL/L (20-31); CHLORIDE LEVEL 108 MMOL/L (98-107); CREATININE FOR GFR 0.69 MG/DL (0.55-1.30); GLOMERULAR FILTRATION RATE > 60.0 (>45); GLUCOSE, FASTING 102 MG/DL (74-106); POTASSIUM SERUM 3.9 MMOL/L (3.5-5.1); SODIUM LEVEL 138 MMOL/L (136-145); TOTAL PROTEIN 5.1 G/DL (5.7-8.2)
[2022-12-05] MEDS: ONDANSETRON 4MG 2ML VIAL IV PRN (08:29)
[2022-12-05] MEDS: SENNA 8.6 MG TAB (SENOKOT) PO SCH ×2 (08:52→20:14)
[2022-12-05] MEDS: OMEPRAZOLE 20MG CAP PO SCH (08:53)
[2022-12-05] MEDS: DULoxetine 20MG CAP (CYMBALTA) PO SCH (08:53)
[2022-12-05] MEDS: NORTRIPTYLINE 10 MG CAP PO SCH ×3 (08:53→20:14)
[2022-12-05] MEDS: TOPIRAMATE (TopAMAX) 25 MG TAB PO SCH (08:55)
[2022-12-05] MEDS ORDERED: DOCUSATE SODIUM 100MG CAPSULE PO SCH (09:00)
[2022-12-05] MEDS: ENOXAPARIN 80MG/0.8ML SYRINGE (J1650 PER 10MG) SC SCH ×2 (11:33→22:43)
[2022-12-05] MEDS: DOCUSATE SOD LIQ 100MG/10ML UDC PO SCH (20:13)
[2022-12-05] MEDS: SIMVASTATIN 20 MG TAB PO SCH (20:14)
[2022-12-05] MEDS: TOPIRAMATE (TopAMAX) 100 MG TAB PO SCH (20:16)
[2022-12-06] VITALS (16 sets, daily range): BP systolic 105–131; BP diastolic 60–82; O2SAT 94–96
[2022-12-06 05:06] LABS: HEMATOCRIT 28.3 % (36.0-47.0); HEMOGLOBIN 8.6 g/dl (12.0-15.5); MEAN CORPUSCULAR HEMOGLOBIN 27.8 pg (27.0-33.0); MEAN CORPUSCULAR HGB CONC 30.4 g/dl (32.0-36.5); MEAN CORPUSCULAR VOLUME 91.6 fl (80.0-96.0); PLATELET COUNT, AUTOMATED 124 10^3/uL (150-450); RED BLOOD COUNT 3.09 10^6/uL (4.00-5.40); WHITE BLOOD COUNT 2.6 10^3/uL (4.0-10.0)
[2022-12-06] MEDS: LevoFLOXacin 750 MG TABLET PO SCH (05:10)
[2022-12-06] MEDS: MORPHINE 10 MG/ML 1ML VIAL IV PRN ×4 (05:10→20:15)
[2022-12-06 05:37] LABS: ALBUMIN 2.2 G/DL (3.2-5.2); ALKALINE PHOSPHATASE 102 U/L (46-116); ALT/SGPT < 9 U/L (7.0-40); AST/SGOT 32 U/L (<34); BILIRUBIN,TOTAL 0.4 MG/DL (0.3-1.2); BLOOD UREA NITROGEN 13 MG/DL (9-23); CALCIUM LEVEL 9.1 MG/DL (8.3-10.6); CARBON DIOXIDE LEVEL 24 MMOL/L (20-31); CHLORIDE LEVEL 105 MMOL/L (98-107); CREATININE FOR GFR 0.68 MG/DL (0.55-1.30); GLOMERULAR FILTRATION RATE > 60.0 (>45); GLUCOSE, FASTING 91 MG/DL (74-106); POTASSIUM SERUM 3.8 MMOL/L (3.5-5.1); SODIUM LEVEL 136 MMOL/L (136-145); TOTAL PROTEIN 5.1 G/DL (5.7-8.2)
[2022-12-06] MEDS: DOCUSATE SOD LIQ 100MG/10ML UDC PO SCH ×2 (09:43→20:13)
[2022-12-06] MEDS: DULoxetine 20MG CAP (CYMBALTA) PO SCH (09:43)
[2022-12-06] MEDS: TOPIRAMATE (TopAMAX) 25 MG TAB PO SCH (09:44)
[2022-12-06] MEDS: NORTRIPTYLINE 10 MG CAP PO SCH ×3 (09:44→20:12)
[2022-12-06] MEDS: SENNA 8.6 MG TAB (SENOKOT) PO SCH ×2 (09:44→20:12)
[2022-12-06] MEDS: PANTOPRAZOLE 40MG VIAL IV SCH (09:45)
[2022-12-06] MEDS: ENOXAPARIN 80MG/0.8ML SYRINGE (J1650 PER 10MG) SC SCH (12:42)
[2022-12-06] MEDS: SIMVASTATIN 20 MG TAB PO SCH (20:12)
[2022-12-06] MEDS: TOPIRAMATE (TopAMAX) 100 MG TAB PO SCH (20:12)
[2022-12-06] MEDS: LORazepam 2 MG/ML VIAL IV PRN (21:08)
[2022-12-07] VITALS (15 sets, daily range): BP systolic 91–119; BP diastolic 57–83; O2SAT 93–98
[2022-12-07] MEDS: ENOXAPARIN 80MG/0.8ML SYRINGE (J1650 PER 10MG) SC SCH ×2 (00:16→12:25)
[2022-12-07] MEDS: MORPHINE 10 MG/ML 1ML VIAL IV PRN ×3 (00:20→16:34)
[2022-12-07 05:46] LABS: HEMATOCRIT 27.8 % (36.0-47.0); HEMOGLOBIN 8.6 g/dl (12.0-15.5); MEAN CORPUSCULAR HEMOGLOBIN 28.2 pg (27.0-33.0); MEAN CORPUSCULAR HGB CONC 30.9 g/dl (32.0-36.5); MEAN CORPUSCULAR VOLUME 91.1 fl (80.0-96.0); PLATELET COUNT, AUTOMATED 128 10^3/uL (150-450); RED BLOOD COUNT 3.05 10^6/uL (4.00-5.40); WHITE BLOOD COUNT 2.5 10^3/uL (4.0-10.0)
[2022-12-07 06:21] LABS: ALBUMIN 2.3 G/DL (3.2-5.2); ALKALINE PHOSPHATASE 102 U/L (46-116); ALT/SGPT < 9 U/L (7.0-40); AST/SGOT 33 U/L (<34); BILIRUBIN,TOTAL 0.4 MG/DL (0.3-1.2); BLOOD UREA NITROGEN 14 MG/DL (9-23); CALCIUM LEVEL 9.5 MG/DL (8.3-10.6); CARBON DIOXIDE LEVEL 25 MMOL/L (20-31); CHLORIDE LEVEL 106 MMOL/L (98-107); CREATININE FOR GFR 0.78 MG/DL (0.55-1.30); GLOMERULAR FILTRATION RATE > 60.0 (>45); GLUCOSE, FASTING 93 MG/DL (74-106); POTASSIUM SERUM 3.7 MMOL/L (3.5-5.1); SODIUM LEVEL 138 MMOL/L (136-145); TOTAL PROTEIN 4.9 G/DL (5.7-8.2)
[2022-12-07] MEDS: PANTOPRAZOLE 40MG VIAL IV SCH (09:21)
[2022-12-07] MEDS: SENNA 8.6 MG TAB (SENOKOT) PO SCH ×2 (09:21→20:52)
[2022-12-07] MEDS: DULoxetine 20MG CAP (CYMBALTA) PO SCH (09:22)
[2022-12-07] MEDS: TOPIRAMATE (TopAMAX) 25 MG TAB PO SCH (09:22)
[2022-12-07] MEDS: DOCUSATE SOD LIQ 100MG/10ML UDC PO SCH ×2 (09:22→20:52)
[2022-12-07] MEDS: NORTRIPTYLINE 10 MG CAP PO SCH ×3 (09:22→20:51)
[2022-12-07] MEDS ORDERED: SIMETHICONE 80MG CHEW TAB PO PRN (15:40)
[2022-12-07] MEDS: oxyCODONE 5MG TAB PO PRN (20:50)
[2022-12-07] MEDS: SIMVASTATIN 20 MG TAB PO SCH (20:51)
[2022-12-07] MEDS: TOPIRAMATE (TopAMAX) 100 MG TAB PO SCH (20:51)
[2022-12-07] MEDS: LORazepam 2 MG/ML VIAL IV PRN (20:52)
[2022-12-08] VITALS: BP 97/56
[2022-12-08] MEDS: ENOXAPARIN 80MG/0.8ML SYRINGE (J1650 PER 10MG) SC SCH ×2 (00:22→12:33)
[2022-12-08 04:00] VITALS: BP 101/70
[2022-12-08 04:15] VITALS: BP 101/70
[2022-12-08] MEDS: MORPHINE 10 MG/ML 1ML VIAL IV PRN ×2 (05:13→13:42)
[2022-12-08 05:41] LABS: HEMATOCRIT 27.9 % (36.0-47.0); HEMOGLOBIN 8.5 g/dl (12.0-15.5); MEAN CORPUSCULAR HEMOGLOBIN 27.8 pg (27.0-33.0); MEAN CORPUSCULAR HGB CONC 30.5 g/dl (32.0-36.5); MEAN CORPUSCULAR VOLUME 91.2 fl (80.0-96.0); PLATELET COUNT, AUTOMATED 128 10^3/uL (150-450); RED BLOOD COUNT 3.06 10^6/uL (4.00-5.40); WHITE BLOOD COUNT 2.4 10^3/uL (4.0-10.0)
[2022-12-08 06:05] LABS: ALBUMIN 2.3 G/DL (3.2-5.2); ALKALINE PHOSPHATASE 102 U/L (46-116); ALT/SGPT 12 U/L (7.0-40); AST/SGOT 35 U/L (<34); BILIRUBIN,TOTAL 0.4 MG/DL (0.3-1.2); BLOOD UREA NITROGEN 13 MG/DL (9-23); CALCIUM LEVEL 9.7 MG/DL (8.3-10.6); CARBON DIOXIDE LEVEL 25 MMOL/L (20-31); CHLORIDE LEVEL 107 MMOL/L (98-107); CREATININE FOR GFR 0.72 MG/DL (0.55-1.30); GLOMERULAR FILTRATION RATE > 60.0 (>45); GLUCOSE, FASTING 100 MG/DL (74-106); POTASSIUM SERUM 3.4 MMOL/L (3.5-5.1); SODIUM LEVEL 139 MMOL/L (136-145); TOTAL PROTEIN 4.8 G/DL (5.7-8.2)
[2022-12-08] MEDS ORDERED: POTASSIUM CHLORIDE 10MEQ SR TABLET PO ONE (06:50)
[2022-12-08 07:57] VITALS: BP 108/66
[2022-12-08] MEDS ORDERED: POTASSIUM CHLORIDE 10% LIQ 20MEQ/15ML UDC PO ONE (09:30)
[2022-12-08] MEDS: PANTOPRAZOLE 40MG VIAL IV SCH (09:56)
[2022-12-08] MEDS: DOCUSATE SOD LIQ 100MG/10ML UDC PO SCH ×2 (09:56→21:18)
[2022-12-08] MEDS: oxyCODONE 5MG TAB PO PRN ×2 (09:57→17:35)
[2022-12-08] MEDS: SENNA 8.6 MG TAB (SENOKOT) PO SCH ×2 (09:57→21:18)
[2022-12-08] MEDS: NORTRIPTYLINE 10 MG CAP PO SCH ×3 (09:57→21:18)
[2022-12-08] MEDS: DULoxetine 20MG CAP (CYMBALTA) PO SCH (09:57)
[2022-12-08] MEDS: TOPIRAMATE (TopAMAX) 25 MG TAB PO SCH (09:58)
[2022-12-08 10:02] LABS: EOSINOPHILS 1 % (0-3); LYMPHOCYTES 32 % (16-44); METAMYELOCYTES 1 % (0-0); MONOCYTES 12 % (0-5); NEUTROPHILS 52 % (28-66); PLATELET ESTIMATE DECREASED (NORMAL)
[2022-12-08 10:03] LABS: ANISOCYTOSIS 2+
[2022-12-08 12:16] VITALS: BP 109/77
[2022-12-08] MEDS: TOPIRAMATE (TopAMAX) 100 MG TAB PO SCH (21:20)
[2022-12-08] MEDS: MORPHINE 10MG/0.5ML ORAL CONCENTRATE SOLUTION U/D SL PRN (21:32)
[2022-12-09] MEDS: oxyCODONE 5MG TAB PO PRN (05:30)
[2022-12-09] MEDS: NORTRIPTYLINE 10 MG CAP PO SCH (09:00)
[2022-12-09] MEDS: DULoxetine 20MG CAP (CYMBALTA) PO SCH (09:00)
[2022-12-09] MEDS: SENNA 8.6 MG TAB (SENOKOT) PO SCH (09:00)
[2022-12-09] MEDS: TOPIRAMATE (TopAMAX) 25 MG TAB PO SCH (09:00)
[2022-12-09] MEDS: DOCUSATE SOD LIQ 100MG/10ML UDC PO SCH (09:00)
[2022-12-09] MEDS: MORPHINE 10MG/0.5ML ORAL CONCENTRATE SOLUTION U/D SL PRN ×4 (09:38→22:20)
[2022-12-09] MEDS: LORazepam 2 MG/ML VIAL IV PRN ×2 (13:20→22:08)
[2022-12-10] MEDS: MORPHINE 10MG/0.5ML ORAL CONCENTRATE SOLUTION U/D SL PRN ×5 (01:07→20:57)
[2022-12-10] MEDS: oxyCODONE 5MG TAB PO PRN ×3 (02:34→19:52)
[2022-12-10] MEDS: MORPHINE 4 MG/ML 1ML VIAL IV PRN (15:56)
[2022-12-10] MEDS: LORazepam 2 MG/ML VIAL IV PRN (20:00)
[2022-12-11] MEDS: MORPHINE 10MG/0.5ML ORAL CONCENTRATE SOLUTION U/D SL PRN ×5 (03:28→22:20)
[2022-12-11] MEDS: MORPHINE 4 MG/ML 1ML VIAL IV PRN ×3 (08:39→19:52)
[2022-12-11] MEDS: oxyCODONE 5MG TAB PO PRN ×2 (10:38→16:07)
[2022-12-12] MEDS: MORPHINE 10MG/0.5ML ORAL CONCENTRATE SOLUTION U/D SL PRN ×6 (01:50→18:47)
[2022-12-12] MEDS: MORPHINE 4 MG/ML 1ML VIAL IV PRN ×2 (02:26→19:59)
[2022-12-12] MEDS: oxyCODONE 5MG TAB PO PRN (03:40)
[2022-12-12] MEDS: LORazepam 2 MG/ML VIAL IV PRN ×3 (05:34→18:45)
[2022-12-12] MEDS: ONDANSETRON 4MG 2ML VIAL IV PRN (19:58)
[2022-12-13] MEDS: MORPHINE 10MG/0.5ML ORAL CONCENTRATE SOLUTION U/D SL PRN ×5 (04:28→22:37)
[2022-12-13] MEDS: LORazepam 2 MG/ML VIAL IV PRN ×2 (09:39→16:33)
[2022-12-13] MEDS: ONDANSETRON 4MG 2ML VIAL IV PRN (19:23)
[2022-12-13] MEDS: MORPHINE 4 MG/ML 1ML VIAL IV PRN (19:23)
[2022-12-14] MEDS: MORPHINE 10MG/0.5ML ORAL CONCENTRATE SOLUTION U/D SL PRN ×3 (01:02→07:45)
[2022-12-14] MEDS ORDERED: ONDANSETRON 4MG ORAL DISINTEGRATING TAB PO PRN (01:30)
[2022-12-14] MEDS: LORazepam 0.5 MG TAB PO PRN ×2 (02:08→07:45)
[2022-12-14] MEDS ORDERED: MORP1SOL5 PO ×2 (08:21→11:16)
[2022-12-14] MEDS ORDERED: ATIV1TAB10 PO ×2 (08:21→11:16)
[2022-12-14] MEDS ORDERED: HYOS125TA PO ×2 (08:21→11:16)
== END 2022-12-14 11:55 | disposition hospice, inpatient (51) | DRG 134 ==
LOC: M ED 10:36 → M ED INP 16:23 → M PCU 18:26 → M MS5PR 12-10 20:45
PROVIDERS: ADMIT Internal Medicine; ATTEND Internal Medicine
PROC: 06H03DZ Insertion of Intraluminal Device into Inferior Vena Cava, Percutaneous Approach (ICD-10-PCS; principal; 2022-12-02 07:30)
DX: I26.99 Other pulmonary embolism without acute cor pulmonale (principal); C78.00 Secondary malignant neoplasm of unspecified lung; C79.51 Secondary malignant neoplasm of bone; R13.10 Dysphagia, unspecified; D62 Acute posthemorrhagic anemia; C56.9 Malignant neoplasm of unspecified ovary; E86.0 Dehydration; N13.30 Unspecified hydronephrosis; I82.402 Acute embolism and thrombosis of unspecified deep veins of left lower extremity; I10 Essential (primary) hypertension; K21.9 Gastro-esophageal reflux disease without esophagitis; N93.9 Abnormal uterine and vaginal bleeding, unspecified; R53.1 Weakness; N39.0 Urinary tract infection, site not specified; E78.5 Hyperlipidemia, unspecified; G89.3 Neoplasm related pain (acute) (chronic); R41.3 Other amnesia; Z86.73 Personal history of transient ischemic attack (TIA), and cerebral infarction without residual deficits; Z87.891 Personal history of nicotine dependence; R62.7 Adult failure to thrive; B95.2 Enterococcus as the cause of diseases classified elsewhere; Z79.82 Long term (current) use of aspirin; Z79.899 Other long term (current) drug therapy; Z88.8 Allergy status to other drugs, medicaments and biological substances; Z91.048 Other nonmedicinal substance allergy status; R19.09 Other intra-abdominal and pelvic swelling, mass and lump; Z96.0 Presence of urogenital implants; Z66 Do not resuscitate

== ENCOUNTER 2022-12-10 13:00 | Outpatient (RCR) | payer OTHER ==
[~2022-12-10 13:00] MED LIST changes: +ASPI81CH33 PO; +E-Z-PAQUE 96% w/w SUSP 176GM BTL As Ordered ONE; +NALO12.5 PO; +SIMV20TA22 PO; +VARIBAR NECTAR 40% w/v 240ML SUSP BTL As Ordered ONE; +VARIBAR PUDDING 40% w/v 230ML TUBE As Ordered ONE
[2022-12-14] MEDS ORDERED: MORP1SOL5 PO ×2 (08:21→11:16)
[2022-12-14] MEDS ORDERED: HYOS125TA PO ×2 (08:21→11:16)
[2022-12-14] MEDS ORDERED: ATIV1TAB10 PO ×2 (08:21→11:16)
== END 2022-12-21 ==
LOC: M ONCR 13:00
PROVIDERS: ATTEND General Practice
DX: C56.2 Malignant neoplasm of left ovary (principal); C79.51 Secondary malignant neoplasm of bone